=== PATIENT | male | born 1945 | race Hispanic/Latino ===

== ENCOUNTER 2020-02-13 09:05 | Emergency (ER) | payer MEDICARE, OTHER ==
[~2020-02-13] VITALS: Ht 177.8 cm; Wt 106.6 kg
[~2020-02-13 09:05] MED LIST: AMLODIPINE BESYL5 MG PO; ASPIR 8181 MG PO; BEDOYECTA PO; DICYCLOMINE HCL10 MG PO; LISINOPRIL PO; METFORMIN HCL500 MG PO; PENTOXIFYLLINE400 MG PO; ROSUVASTATIN PO; TRESIBA FL100 UNIT/1 SQ; ZINC SULFATE220 M1 PO
--- NOTE | 2020-02-13 09:31 | Emergency Department Note ---
History of Present Illnes History of Present Illness Chief Complaint: Eye, Ear, Nose, Throat, Dental History of Present Illness This is a 74 year old male . Chief Complaint Comment PATIENT IN FROM HOME WITH COMPLAINTS OF MORE PRONOUNCED HEARING LOSS X 2 DAYS; SPOUSE STATES THAT HE HAS HAD ISSUES WITH HIS HEARING FOR THE LAST COUPLE OF YEARS AND GOT A HEARING AID, BUT THEN IT WAS TAKEN BACK. PATIENT STATES HE SAW HIS PRIMARY CARE PHYSICIAN A MONTH AGO AND WAS GIVEN DROPS, BUT THEY DID NOT HELP. PATIENT DENIES PAIN, APPEARS IN NO DISTRESS, RESP EVEN AND NONLABORED, AMBULATORY WITHOUT ASSISTANCE Historian: Patient, Family Member Arrival Mode: Car Onset (how long ago): week(s) (3) Location: EARS Radiation: Denies non-radiation, Denies back, Denies neck, Denies extremity, Denies abdomen, Denies periumbilical, Denies flank, Denies proximal, Denies distal, Denies other Severity: moderate Onset quality: gradual Duration (how long): week(s) (3) Timing of current episode: constant Chronicity: new Context: Denies recent illness, Denies recent surgery, Denies recent immobilization, Denies recent travel, Denies trauma/injury, Denies new medications, Denies hx of DVT/PE, Denies non-compliance w/ medications, Denies other Relieving factors: none Exacerbating factors: none Associated symptoms: Denies denies other symptoms, Denies confusion, Denies chest pain, Denies cough, Denies diaphoresis, Denies fever/chills, Denies headaches, Denies loss of appetite, Denies malaise, Denies nausea/vomiting, Denies rash, Denies seizure, Denies shortness of breath, Denies syncope, Denies weakness, Denies other Past Medical/Family History Physician Review I have reviewed the patient's past medical and family history. Any updates have been documented here. Past Medical History Recent Fever: No Clinical Suspicion of Infectio: No New/Unexplained Change in Ment: No Past Medical History: Hypertension, Diabetes, Cancer Other Medical History: COLON CANCER HARD OF HEARING Past Surgical History: Cholecysctectomy Other Surgery: PACEMAKER, COLON CANCER 2012, HERNIED DISK, ROTOR CUFF,LEFT EYE SURGERY, Social History Smoking Cessation: Never Smoker Counseling Performed: No Alcohol Use: None Any Illegal Drug Use: No Physically hurt or threatened: No Other Last Tetanus: UNKNOWN Any Pre-Existing Lines (PICC,: No Review of Systems Review of Systems Constitutional: Reports no symptoms EENTM: Reports as per HPI Cardiovascular: Reports no symptoms Respiratory: Reports no symptoms Gastrointestinal: Reports no symptoms Genitourinary: Reports no symptoms Musculoskeletal: Reports no symptoms Integumentary: Reports no symptoms Neurological: Reports no symptoms Psychological: Reports no symptoms Endocrine: Reports no symptoms Hematological/Lymphatic: Reports no symptoms Physical Exam Related Data Allergies: Coded Allergies: No Known Allergies (Unverified , 10/16/19) Triage Vital Signs Vital Signs Date Time Temp Pulse Resp B/P (MAP) Pulse Ox O2 Delivery O2 Flow Rate FiO2 02/13/20 09:08 97.5 79 18 160/68 99 Room Air Vital signs reviewed: Yes Physical Exam CONSTITUTIONAL Constitutional: Present well-developed, Present well-nourished HENT HENT: Present normocephalic, Present atraumatic, Present oropharynx clear/moist, Present nose normal HENT L/R: Present left ext ear normal, Present right ext ear normal EYES Eyes: Reports PERRL, Reports conjunctivae normal NECK Neck: Present ROM normal PULMONARY Pulmonary: Present effort normal, Present breath sounds normal CARDIOVASCULAR Cardiovascular: Present regular rhythm, Present heart sounds normal, Present capillary refill normal, Present normal rate GASTROINTESTINAL Abdominal: Present soft, Present nontender, Present bowel sounds normal GENITOURINARY Genitourinary: Present exam deferred SKIN Skin: Present warm, Present dry MUSCULOSKELETAL Musculoskeletal: Present ROM normal NEUROLOGICAL Neurological: Present alert, Present oriented x 3, Present no gross motor or sensory deficits PSYCHOLOGICAL Psychological: Present mood/affect normal, Present judgement normal Assessment & Plan Medical Decision Making MDM CERUMEN HEARING LOSS Reassessment Reassessment SAME Assessment & Plan Final Impression: (1) Hearing loss Depart Disposition: HOME, SELF-CARE Last Vital Signs Date Time Temp Pulse Resp B/P (MAP) Pulse Ox O2 Delivery O2 Flow Rate FiO2 02/13/20 09:08 97.5 79 18 160/68 99 Room Air Home Meds Reported Medications Aspirin (ASPIR 81) 81 Mg Tablet.dr, 81 MG PO DAILY 10/18/19 Insulin Degludec (Tresiba Flextouch U-100) 100 Unit/1 Ml Insuln.pen, 17 UNITS SQ DAILY 10/16/19 Zinc Sulfate (ZINC SULFATE) 220 Mg Capsule, 50 MG PO DAILY 10/16/19 [Bedoyecta] No Conflict Check, 1 CAP PO DAILY 10/16/19 Amlodipine Besylate (AMLODIPINE BESYLATE) 5 Mg Tablet, 2.5 MG PO BID, #30 TAB 10/16/19 Metformin Hcl (METFORMIN HCL) 500 Mg Tablet, 1000 MG PO BIDWM, #60 TAB 10/16/19 [Lisinopril] No Conflict Check, 20 MG PO BID 10/16/19 [Rosuvastatin] No Conflict Check, 20 MG PO DAILY 10/16/19 Pentoxifylline (PENTOXIFYLLINE) 400 Mg Tablet.er, 400 MG PO BIDWM, #30 TAB 10/16/19 Dicyclomine Hcl (DICYCLOMINE HCL) 10 Mg Capsule, 10 MG PO QID 10/16/19 SHAHNAZ LOWE MD Feb 13, 2020 09:31
[2020-02-13] MEDS ORDERED: CORTISPORIN-TC10 M1 EACH EAR (09:36)
--- OUTSIDE RECORDS SUMMARY | 2020-02-13 09:46 | XMS REPORT | Continuity of Care Document ---
Author Author [facility] t Organization [facility] Address [address] [place] [address] Phone Unavailable Care Team Providers Care Councilman Name Role Phone MD Kailey ASHER PCP DAHU, S JIRIES Attphys Unavailable DAHU, S JIRIES Admphys Unavailable Payers Payer Name Policy Type Policy Number Effective Date Expiration Date Jana Krause Plus [id number] 2019 00:00:00 [facility] Medicare A & B [id number] 2004 00:00:00 [facility] Problems Condition Name Condition Details Condition Category Status Onset Date Resolution Date Last Treatment Date Treating Clinician Comments Source Chest pain Problem Active [facility] Allergies, Adverse Reactions, Alerts This patient has no known allergies or adverse reactions. Social History Social Habit Start Date Stop Date Quantity Comments Source Sex Ass[birth year] At 1945 00:00:00 1945 00[birth year]:00 Male [facility] Medications Ordered Medication Name Filled Medication Name Start Date Stop Da te Current Medication? Ordering Clinician Indication Dosage Frequency Signature (SIG) Comments Components Source Amlodipine Besylate Amlodipine Besylate Yes 2.5 Twice A Day [facility] Aspirin (Aspir 81) 81 Mg TABLET. Aspirin (Aspir 81) 81 Mg TABLET. Yes 81 Daily [facility] Bedoyecta Bedoyecta Yes 1 Daily [facility] Dicyclomine Hcl Dicyclomine Hcl Yes 10 Four Mao es Daily [facility] Insulin Degludec (Tresiba Flextouch U-100) 100 Unit/1 Ml INSULN.PEN Insulin Degludec (Tresiba Flextouch U-100) 100 Unit/1 Ml INSULN.PEN Yes 17 Daily [facility] Lisinopril Lisinopril Yes 20 Twice A Day [facility] Metformin Hcl Metformin Hcl Yes 1000 Twice Daily With Meals [facility] Pentoxifylline Pentoxifylline Yes 400 Twice Hitesh y With Meals [facility] Rosuvastatin Rosuvastatin Yes 20 Daily [facility] Zinc Sulfate Zinc Sulfate Yes 50 Daily [facility] Vital Signs Vital Name Observation Time Observation Value Comments Source Body Temperature 2019-10-18 15:53:00 97.7 [degF] [facility] BMI (Body Mass Index) 2019-10-16 15:10:00 46.3 kg/m2 [facility] Weight 2019-10-16 12:26:00 229 [lb_av] [facility] Procedures Procedure Date / Time Performed Performing Clinician Sour e Computed tomography of chest with contrast 2019-10-16 00:00:00 [facility] Plan of Care Planned Activity Planned Date Details Comments Source Instructions Chest Pain - Chest Wall [facility] Encounters Start Date/Time End Date/Time Encounter Type Admission Type [facility] Care Department Encounter ID Source 2019-10-16 13:55:00 2019-10-18 16:57:00 Discharged Inpatient (obs) 1 TRACY VASQUEZ [facility] [id number] I [facility] Results Test Description Test Time Test Comments Results Result Comments Source Capillary blood glucose measurement by glucometer (mas s/volume) 2019-10-18 15:25:00 Test Item Bedside Glucose (test code = 07276-8) 247 70-120 Meter ID: [id number] Hospitalerum or plasma creatine kinase measurement (enzymatic activity/volume)2019-10-17 12:46:00* Test Item Value Reference Range Interpretation Comments Creatine Kinase (test code = 2157-6) 340 30-200 [facility] plasma creatine kinase MB measurement (mass/volume)2019-10-17 12:46:00* Test Item Value Reference Range Interpretation Comments Creatine Kinase MB (test code = 63729-5) 7.90 0-5.0 [facility] measurement by highly sensitive enzyme zqtdiylzmms7788-96-10 12:46:00* Test Item Value Reference Range Interpretation Comments Troponin I (test code = 36534-7) 0.288 0-0.300 [facility] leukocytes automated count (number/volume)2019-10-17 06:15:00* Test Item Value Reference Range Interpretation Comments White Blood Count (test code = 6690-2) 4.23 4.8-10.8 [facility]Blood erythrocytes automated count (number/volume)2019-10-17 06:15:00* Test Item Value Reference Range Interpretation Comments Red Blood Count (test code = 789-8) 4.32 4.3-5.7 [facility] hemoglobin measurement (moles/volume)2019-10-17 06:15:00* Test Item Value Reference Range Interpretation Comments Hemoglobin (test code = 28922-0) 13.4 14.0-18.0 [facility] CenterAutomated blood hematocrit (volume fraction)2019-10-17 06:15:00* Test Item Value Reference Range Interpretation Comments Hematocrit (test code = 4544-3) 40.0 38.2-49.6 [facility] CenterAutomated erythrocyte mean corpuscular azatig9964-75-00 06:15:00* Test Item Value Reference Range Interpretation Comments Mean Corpuscular Volume (test code = 787-2) 92.6 81-99 [facility] CenterAutomated erythrocyte mean corpuscular hemoglobin (mass per erythrocyte)2019-10-17 06:15:00* Test Item Value Reference Range Interpretation Comments Mean Corpuscular Hemoglobin (test code = 785-6) 31.0 28-32 [facility] CenterAutomated erythrocyte mean corpuscular hemoglobin concentration measurement (mass/volume)2019-10-17 06:15:00* Test Item Value Reference Range Interpretation Comments Mean Corpuscular Hemoglobin Concent (test code = 786-4) 33.5 31-35 [facility] CenterRDW PxeAc-Vqm2142-05-08 06:15:00* Test Item Value Reference Range Interpretation Comments Red Cell Distribution Width (test code = 18853-7) 13.1 11.7 -14.4 [facility] CenterAutomated blood platelet count (count/volume)2019-10-17 06:15:00* Test Item Value Reference Range Interpretation Comments Platelet Count (test code = 777-3) 160 140-360 [facility] CenterAutomated blood segmented neutrophil count as percentage of total pmneowrump4015-25-68 06:15:00* Test Item Value Reference Range Interpretation Comments Neutrophils (%) (Auto) (test code = 02174-7) 54.6 38.7-80.0 [facility] CenterAutomated blood lymphocyte count as percentage ot total urfxbwhack3261-88-59 06:15:00* Test Item Value Reference Range Interpretation Comments Lymphocytes (%) (Auto) (test code = 736-9) 29.8 18.0-39.1 [facility] CenterAutomated blood monocyte count as percentage of total qvshdujnaa3898-97-69 06:15:00* Test Item Value Reference Range Interpretation Comments Monocytes (%) (Auto) (test code = 5905-5) 12.3 4.4-11.3 [facility] CenterAutomated blood eosinophil count as percentage of total dadvaxizij6063-04-46 06:15:00* Test Item Value Reference Range Interpretation Comments Eosinophils (%) (Auto) (test code = 713-8) 2.6 0.0-6.0 [facility] CenterAutomated blood basophil count as percentage of total xwwrkuremo4242-24-70 06:15:00* Test Item Value Reference Range Interpretation Comments Basophils (%) (Auto) (test code = 706-2) 0.7 0.0-1.0 [facility] CenterFluoroscopic procedure less than one hour poknvfgs5646-58-19 06:15:00* Test Item Value Reference Range Interpretation Comments IM GRANULOCYTES % (test code = IM GRANULOCYTES %) 0.0 0.0- 1.0 [facility] CenterAutomated blood neutrophil count 2019-10-17 06:15:00* Test Item Value Reference Range Interpretation Comments Neutrophils # (Auto) (test code = 751-8) 2.3 2.1-6.9 [facility] CenterBlood lymphocytes count (number/volume) 2019-10-17 06:15:00* Test Item Value Reference Range Interpretation Comments Lymphocytes # (Auto) (test code = 21976-2) 1.3 1.0-3.2 [facility] CenterBlood monocytes automated count (number/volume)2019-10-17 06:15:00* Test Item Value Reference Range Interpretation Comments Monocytes # (Auto) (test code = 742-7) 0.5 0.2-0.8 [facility] CenterAutomated blood eosinophil count 2019-10-17 06:15:00* Test Item Value Reference Range Interpretation Comments Eosinophils # (Auto) (test code = 711-2) 0.1 0.0-0.4 [facility] CenterAutomated blood basophil count (count/volume)2019-10-17 06:15:00* Test Item Value Reference Range Interpretation Comments Basophils # (Auto) (test code = 704-7) 0.0 0.0-0.1 [facility] CenterFluoroscopic procedure less than one hour tjrnwvzv4838-61-50 06:15:00* Test Item Value Reference Range Interpretation Comments Absolute Immature Granulocyte (auto (young t code = Absolute Immature Granulocyte (auto) 0 0-0.1 [facility]er[facility] or plasma sodium measurement (moles/volume)2019-10-17 04:45:00* Test Item Value Reference Range Interpretation Comments Sodium Level (test code = 2951-2) 143 136-145 [facility] Hospitaler[facility] or plasma potassium measurement (moles/volume)2019-10-17 04:45:00* Test Item Value Reference Range Interpretation Comments Potassium Level (test code = 2823-3) 3.8 3.5-5.1 [facility] Hospitaler[facility] or plasma chloride measurement (moles/volume)2019-10-17 04:45:00* Test Item Value Reference Range Interpretation Comments Chloride Level (test code = 2075-0) 109 98-107 [facility]er[facility] or plasma carbon dioxide, total measurement (moles/volume)2019-10-17 04:45:00* Test Item Value Reference Range Interpretation Comments Carbon Dioxide Level (test code = 2028-9) 25 22-29 [facility]er[facility] or plasma anion apz0250-25-29 04:45:00* Test Item Value Reference Range Interpretation Comments Anion Gap (test code = 79472-7) 12.8 8-16 [facility] or plasma urea nitrogen measurement (mass/volume)2019-10-17 04:45:00* Test Item Value Reference Range Interpretation Comments Blood Urea Nitrogen (test code = 3094-0) 11 7-26 [facility]er[facility] or plasma creatinine measurement (mass/volume)2019-10-17 04:45:00* Test Item Value Reference Range Interpretation Comments Creatinine (test code = 2160-0) 0.81 0.72-1.25 [facility] Hospitalerum or plasma urea nitrogen/creatinine mass mzxct0442-42-90 04:45:00* Test Item Value Reference Range Interpretation Comments BUN/Creatinine Ratio (test code = 3097-3) 14 6-25 [facility] CenterEstimated glomerular filtration rate (GFR) pcpuipbftjmip0656-98-02 04:45:00* Test Item Value Reference Range Interpretation Comments Estimat Glomerular Filtration Rate (test code = 249744254) > 60 >60 Ranges were taken from the National Kidney Disease Education Program and the [facility] literature.Reference ranges:60 or greater: Ecejyh14-27 ( for 3 consecutive months): Chronic kidney disease 15 or less: Kidney failureDell Children's Medical CenterGlucose udphewghkpg4844-96-54 04:45:00* Test Item Value Reference Range Interpretation Comments Glucose Level (test code = ABZ7436) 103 74-118 [facility] Hospitalerum or plasma calcium measurement (mass/volume)2019-10-17 04:45:00* Test Item Value Reference Range Interpretation Comments Calcium Level (test code = 40489-5) 8.7 8.4-10.2 [facility] CenterFluoroscopic procedure less than one hour msllhkqz6036-12-87 04:45:00* Test Item Value Reference Range Interpretation Comments Hemoglobin A1c Percent (test code = Hemoglobin A1c Percent) 7.7 4.0-7.0 [facility] Hospitalerum or plasma total bilirubin measurement (mass/volume)2019-10-17 04:45:00* Test Item Value Reference Range Interpretation Comments Total Bilirubin (test code = 1975-2) 0.5 0.2-1.2 [facility] CenterFluoroscopic procedure less than one hour cyrpgpoy8322-86-21 04:45:00* Test Item Value Reference Range Interpretation Comments Aspartate Amino Transf (AST/SGOT) (test code = Aspartate Amino Transf (AST/SGOT)) 25 5-34 [facility] Hospitalerum or plasma alanine aminotransferase measurement (enzymatic activity/volume)2019-10-17 04:45:00* Test Item Value Reference Range Interpretation Comments Alanine Aminotransferase (ALT/SGPT) (test code = 1742-6) 21 0-55 [facility] Hospitalerum or plasma protein measurement (mass/volume)2019-10-17 04:45:00* Test Item Value Reference Range Interpretation Comments Total Protein (test code = 2885-2) 6.4 6.5-8.1 [facility] Hospitalerum or plasma albumin measurement (mass/volume)2019-10-17 04:45:00* Test Item Value Reference Range Interpretation Comments Albumin (test code = 1751-7) 3.3 3.5-5.0 [facility] CenterPlasma globulin measurement (mass/volume) 2019-10-17 04:45:00* Test Item Value Reference Range Interpretation Comments Globulin (test code = 27503-5) 3.1 2.3-3.5 [facility] Hospitalerum or plasma albumin/globulin mass welbf2912-32-59 04:45:00* Test Item Value Reference Range Interpretation Comments Albumin/Globulin Ratio (test code = 1759-0) 1.1 0.8-2.0 [facility] Hospitalerum or plasma alkaline phosphatase measurement (enzymatic activity/volume)2019-10-17 04:45:00* Test Item Value Reference Range Interpretation Comments Alkaline Phosphatase (test code = 6768-6) 52 40-150 [facility] Hospitalerum or plasma triglyceride measurement (mass/volume)2019-10-17 04:45:00* Test Item Value Reference Range Interpretation Comments Triglycerides Level (test code = 2571-8) 118 0-149 [facility]erum or plasma cholesterol measurement (mass/volume)2019-10-17 04:45:00* Test Item Value Reference Range Interpretation Comments Cholesterol Level (test code = 2093-3) 130 0-199 Less than 200 mg/dL Low Qxks082 - 239 mg/dL Borderline Ozzu492 m g/dl and greater High Risk [facility] Hospitalerum or plasma cholesterol in LDL measurement (mass/volume) 2019-10-17 04:45:00* Test Item Value Reference Range Interpretation Comments LDL Cholesterol (test code = 2089-1) 54 60-130 [facility]er[facility] or plasma cholesterol in HDL measurement (mass/volume)2019-10-17 04:45:00* Test Item Value Reference Range Interpretation Comments HDL Cholesterol (test code = 2085-9) 52 40-60 [facility] Hospitalerum or plasma total cholesterol/cholesterol in HDL mass tplia2273-61-70 04:45:00* Test Item Value Reference Range Interpretation Comments Cholesterol/HDL Ratio (test code = 9830-1) 2.5 3.9-4.7 [facility] Hospitalerum or plasma thyrotropin measurement by detection limit <= 0.005 miu/l (units/volume)2019-10-17 04:45:00* Test Item Value Reference Range Interpretation Comments Thyroid Stimulating Hormone (TSH) (test code = 77530-6) 0.634 0.350-4.940 [facility] CenterCT CHEST K4317-19-04 21:04:00 [facility] [address] [place] [address] Patient Name: KENNETH DUARTE MR #: [id number] : 1945 Age/Sex: 74[id number] Req #: [id number] Adm Physician: TRACY VASQUEZ MD Ordered by: TRACY VASQUEZ MD Report #: [id number] Location: MED/SURG Room/Bed: 1 10-09 Procedure: CT/CT CHEST W Exam Date: 10/16/19 Exam Time: 2034 REPORT STATUS: Signed CT chest pulmonary embolism pro tocol CPT code: 84298 INDICATION: SOB, R/O PE [id number] TECHNIQUE: Thin collimation axial images obtained through the level of th e pulmonary arteries with additional imaging through the chest following the uneventful administration of 100 cc of low osmolar, nonionic intravenous cont rast. Images reconstructed into coronal and sagittal MIPs for complete evalua tion of the tortuous and overlapping pulmonary vascular structures and to redu ce patient radiation dose. RADIATION DOSE: Total DLP: 562.51 mGy*cm Estimated effective dose: (DLP x 0.015 x size factor) mSv CTDIvol has been reviewed. It is below the limits set by the Radiation Protocol Commi ttee ([facility]). Dose reduction techniques used: Automated exposure control, adj ustment of the mAs and/or kVp according to patient size, standardized low-dose protocol, and/or iterative reconstruction technique. COMPARISON: Chest x -ray 1219 hours. FINDINGS: Pulmonary artery: No filling defects are appre ciated within the main, left, right, lobar or visualized segmental pulmonary a rteries to suggest embolism. The main pulmonary artery measures 3.0 cm. A brigette: Timing of the contrast bolus is for the pulmonary artery. The aorta is normal in diameter with scattered calcifications throughout. Lymph nodes: N o enlarged axillary, supraclavicular, mediastinal, or hilar lymph nodes. Thyroid: Visualized portions are normal. Mediastinum: There is a small amou nt of air in the left axillary vein, likely from injection. The heart is mildl y enlarged. Pacemaker wires terminate in the right atrium and right ventricle. There are calcifications of the aortic valve and coronary arteries. Small per icardial effusion. The esophagus is normal. Lungs: Right Lung: Mild h yperinflation. Dependent atelectasis. No infiltrates. Small focus of honeycomb ing adjacent hemidiaphragm in the inferior and lateral middle lobe. No soft ti ssue nodules. Left Lung: Mild hyperinflation. Dependent atelectasis. Small foci of atelectasis in the inferior lingula. No soft tissue nodules. Ple ura: No pleural effusion or pleural-based mass. Abdomen: The gallbladder is absent. No mass or lymphadenopathy in the visualized portions of the upper ab domen. Bones: Mild degenerative changes of the midthoracic spine. No focal osseous lesions. IMPRESSION: 1. No evidence of pulmonary embolus. T op normal-size of the main pulmonary artery. 2. Pulmonary hyperinflation carrera ggestive of small airways disease. 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 3. Cardiomegaly. Small pericardial effusion. Atherosclerosis. 4. Small amount of air in the left axillary vein is likely secondary to injection. Signed by: Dr. Yenny Rincon MD on 10/16/2019 9:18 PM Dictated By: YENNY RINCON MD 17 Transcribed By: JOCELYN on 10/16/192117 COPY TO: TRACY VASQUEZ MD CHEST SINGLE (PORTABLE)2019-10-16 13:34:00 [place] [address] Patient Name: KENNETH DUARTE MR #: [id number] : 1945 Age/Sex: 74/M Req #: [id number] Adm Physician: Ordered by: AZUL RICO MD Report # : [id number] Location: ER Room/Bed: Procedure: [id number] DX/CHEST SINGLE (PO RTABLE) Exam Date: 10/16/19 Exam Time: 1319 REPORT STATUS: Signed EXAMINATION: CHES T SINGLE (PORTABLE) INDICATION: CP COMPARISON: None FIN DINGS: TUBES and LINES: Left-sided pacemaker with leads overlying the right a trium and right ventricle. LUNGS: Low lung volumes with vascular crowdin g. There is no evidence of pneumonia or pulmonary edema. PLEURA: No pleu ral effusion or pneumothorax. HEART AND MEDIASTINUM: The cardiomediastina l silhouette is unremarkable. There are atherosclerotic calcifications within the aorta. BONES AND SOFT TISSUES: No acute osseous lesion. Soft tissues are unremarkable. UPPER ABDOMEN: No free air under the diaphragm. IMPRESSION: No acute radiographic abnormality. No evidence of pulmonary joaquin ma. Signed by: Dr. Fiona Schultz MD on 10/16/2019 1:36 PM Dictated By: Jana SCHULTZ MD 1336 Transcri bed By: JOCELYN on 10/16/19 1336 COPY TO: AZUL RICO MD Fluoroscopic procedure less than one hour gecphzyf5552-61-33 13:03:00* Test Item Value Reference Range Interpretation Comments Coronavirus (PCR) (test code = Coronavirus (PCR)) NOT DETECTED NOTD ETECTED SARS-COV-2 (COVID19), HIGHRISK, RT-PCRNegative results do not preclude SARS-CoV- 2 infection and should not be used as the sole basis for patient management deci sions. Negative results must be combined with clinical observations, patient his tory, and epidemiological information. Optimum specimen types and timing for pea k viral levels during infections caused by SARS-CoV-2 have not been determined. Collection of multiple specimens ot types of specimens may be necessary to detec t virus. Improper specimen collection and handling, sequence variability under p rimers/probes, or organism present below the limit of detection may lead to fals e negative results. Positive and negative predictive values of testing are highl y dependent on prevalance. False negative test results are more likely when prev alence is high.The expected result is negative (not detected).The SARS-CoV-2 young t is intended for the qualitative detection of nucleic acid from SARS-CoV-2 in n asopharyngeal and oropharyngeal swab samples from patients who meet COVID-19 cli nical and or epidemiological criteria. For lower respiratory tract specimens, th e assay is submitted for authoriztion by FDA under an Emergency Use Authorizatio n (EUA). Testing methodology is real time RT-PCR. If received as separate collec tion devices, nasopharygeal and oropharyngeal specimens are combined for analysi s. Additional specimens may be split to a separate accession for analysi and rep orting as this test includes a single unit of service.Test results must be corre lated with clinical presentation and evaluated in the context of other laborator y and epidemiologic data. Test performance can be affected because the epidemiol ogy and clinical spectrum of infection caused by SARS-CoV-2 is not fully known. For example, the optimum types of specimens to collect and when during the cours e of infection these specimens are most likely to contain detectable viral RNA m ay not be known.This test has not been Food and Drug Administration (FDA) cleare d or approved and has been authorized by FDA under an Emergency Use Authorizatio n (EUA). The test is only authorized for the duration of the declaration that ci rcumstances exist justifying the authorization of emergency use of in vitro diag nostic tests for detection and/or diagnosis of SARS-CoV-2 under section 564(b) o f the Act, 21 U.S.C. section 360bbb-3(b)(1), unless the authorization is termina kwaku or revoked sooner. [facility] are certified under the C linical Laboratory Improvement Amendments of 1988 (CLIA), 42 U.S.C. section 263a , to perform high complexity tests.Testing performed by [facility] [address] [place], [place] [phone] Director: Clark Cortez M.D.CLIA # [id number] [facility] Prothrombin time (PT) in platelet poor plasma by coagulation mrpkn1674-37-51 12:45:00* Test Item Value Reference Range Interpretation Comments Prothrombin Time (test code = 5902-2) 11.9 11.9-14.5 [facility] CenterIN[facility] in Platelet poor plasma by Coagulation pmxwk8851-73-34 12:45:00* Test Item Value Reference Range Interpretation Comments Prothromb Time International Ratio (test code = 6301-6) 0.83 Oral Anticoagulant Therapy INR Values:1. Low Intensity Therapy 1.5 - 2.02 . Moderate Intensity Therapy 2.0 - 3.03. High Intensity Therapy(1) 2.5 - 3. 54. High Intensity Therapy(2) 3.0 - 4.05. Panic Value INR > 5.0 [facility] CenterActivated partial thromboplastin time (aPTT) in platelet poor plasma by coagulation rpikv8392-50-95 12:45:00* Test Item Value Reference Range Interpretation Comments Activated Partial Thromboplast Time (test code = 64315-4) 26.4 23.8-35.5 [facility] magnesium measurement (mass/volume)2019-10-16 12:45:00* Test Item Value Reference Range Interpretation Comments Magnesium Level (test code = 32507-4) 1.4 1.3-2.1 [facility] A[facility]-dJuo3281-09-07 12:45:00* Test Item Value Reference Range Interpretation Comments B-Type Natriuretic Peptide (test code = 94308-6) 92.3 0-100 [facility]
== END 2020-02-13 09:55 | disposition home or self-care (01) ==
LOC: ER 09:44
DX: H91.93 Unspecified hearing loss, bilateral (principal); I10 Essential (primary) hypertension; E11.9 Type 2 diabetes mellitus without complications; Z85.038 Personal history of other malignant neoplasm of large intestine
CPT/HCPCS: 99283

== ENCOUNTER 2020-02-25 13:00 | Emergency (ER) | payer MEDICARE, OTHER ==
[~2020-02-25] VITALS: Ht 177.8 cm; Wt 106.6 kg
[~2020-02-25 13:00] MED LIST changes: +CORTISPORIN-TC10 M1 EACH EAR
[2020-02-25 13:30] LABS: BASOPHILS % 0.5 % (0.0-1.0); EOSINOPHILS # (AUTO) 0.1 (0.0-0.4); EOSINOPHILS % 1.8 % (0.0-6.0); HEMATOCRIT 41.3 % (38.2-49.6); HEMOGLOBIN 14.3 g/dL (14.0-18.0); LYMPHOCYTES # (AUTO) 1.3 (1.0-3.2); LYMPHOCYTES % 24.4 % (18.0-39.1); MEAN CORPUSCULAR HGB CONC 34.6 g/dL (31-35); MEAN CORPUSCULAR VOLUME 92.4 fL (81-99); MONOCYTES # (AUTO) 0.5 (0.2-0.8); MONOCYTES % 8.2 % (4.4-11.3); NEUTROPHILS # (AUTO) 3.6 (2.1-6.9); NEUTROPHILS % 64.6 % (38.7-80.0); PLATELET COUNT 170 x10e3/uL (140-360); RED BLOOD COUNT 4.47 x10e6/uL (4.3-5.7)
--- OUTSIDE RECORDS SUMMARY | 2020-02-25 13:43 | XMS REPORT | Continuity of Care Document ---
Author Author [facility] t Organization [facility] Address [address] [place] [address] Phone Unavailable Care Team Providers Care Chaperone Name Role Phone MD Kailey ASHER PCP DAHU, Jana JIRIES Attphys Unavailable DAHU, S JIMACY Admphys Unavailable Payers Payer Name Policy Type Policy Number Effective Date Expiration Date Jana Krause Plus [id number] 2019 00:00:00 [facility] Medicare A & B [id number] 2004 00:00:00 [facility] Cdc Review Covid19 [id number] [facility] Problems Condition Name Condition Details Condition Category Status Onset Date Resolution Date Last Treatment Date Treating Clinician Comments Source Chest pain Problem Active [facility] Hearing loss Problem Active [facility] Allergies, Adverse Reactions, Alerts This patient has no known allergies or adverse reactions. Social History Social Habit Start Date Stop Date Quantity Comments Source Sex Assigned At 1945 00:00:00 1945 00:[birth year]:00 Male [facility] Medications Ordered Medication Name Filled Medication Name Start Date Stop Da te Current Medication? Ordering Clinician Indication Dosage Frequency Signature (SIG) Comments Components Source Neomyc/Colist/Hydrocort/Thonzn (Cortisporin-Tc Ear Yoselin pension) 10 Ml DROPS.SUSP Neomyc/Colist/Hydrocort/Thonzn (Cortisporin-Tc Ear Suspension) 10 Ml DROPS.SUSP 2020-02-13 09:36:00 Yes 3 Twice A Day [facility] Amlodipine Besylate Amlodipine Besylate Yes 2.5 Twice A Day [facility] Aspirin (Aspir 81) 81 Mg TABLET. Aspirin (Aspir 81) 81 Mg TABLET. Yes 81 Daily [facility] Bedoyecta Bedoyecta Yes 1 Daily [facility] Dicyclomine Hcl Dicyclomine Hcl Yes 10 Four Mao es Daily [facility] Insulin Degludec (Tresiba Flextouch U-100) 100 Unit/1 Ml INSULN.PEN Insulin Degludec (Tresiba Flextouch U-100) 100 Unit/1 Ml INSULN.PEN Yes 17 Daily [facility] Lisinopril Lisinopril Yes 20 Twice A Day [facility] Metformin Hcl Metformin Hcl Yes 1000 Twice Daily With Meals [facility] Pentoxifylline Pentoxifylline Yes 400 Twice Hitesh y With Meals [facility] Rosuvastatin Rosuvastatin Yes 20 Daily [facility] Zinc Sulfate Zinc Sulfate Yes 50 Daily [facility] Vital Signs Vital Name Observation Time Observation Value Comments Source Weight 2020-02-13 09:08:00 235 [lb_av] [facility] BMI (Body Mass Index) 2020-02-13 09:08:00 33.7 kg/m2 [facility] Body Temperature 2019-10-18 15:53:00 97.7 [degF] [facility] BMI (Body Mass Index) 2019-10-16 15:10:00 46.3 kg/m2 [facility] Weight 2019-10-16 12:26:00 229 [lb_av] [facility] Procedures Procedure Date / Time Performed Performing Clinician [facility] f[facility]ix Computed tomography of chest with contrast 2019-10-16 00:00:00 [facility] Plan of Care Planned Activity Planned Date Details Comments Source Instructions Instilling Ear Drops [facility] Instructions Ear Pain - Adult [facility] Encounters Start Date/Time End Date/Time Encounter Type Admission Type Attendi [facility] Care Department Encounter ID Source 2020-02-13 09:44:00 2020-02-13 09:55:00 Departed Emergency Room [facility] [id number] [facility] 2019-10-16 13:55:00 2019-10-18 16:57:00 Discharged Inpatient (obs) 1 TRACY VASQUEZ [facility] [id number] [facility] Results Test Description Test Time Test Comments Results Result Comments Source Capillary blood glucose measurement by glucometer (mas s/volume) 2019-10-18 15:25:00 Test Item Bedside Glucose (test code = 59011-2) 247 70-120 Meter ID: [id number] [facility] by glucometer (mass/volume)2019-10-18 15:25:00* Test Item Value Reference Range Interpretation Comments Bedside Glucose (test code = 21135-5) 247 70-120 Meter ID: [id number]erum or plasma creatine kinase measurement (enzymatic activity/volume)2019-10-17 12:46:00* Test Item Value Reference Range Interpretation Comments Creatine Kinase (test code = 2157-6) 340 30-200 [facility]uda[facility] or plasma creatine kinase MB measurement (mass/volume)2019-10-17 12:46:00* Test Item Value Reference Range Interpretation Comments Creatine Kinase MB (test code = 25003-9) 7.90 0-5.0 [facility] I measurement by highly sensitive enzyme dmknlsfgnro2823-31-90 12:46:00* Test Item Value Reference Range Interpretation Comments Troponin I (test code = 53405-3) 0.288 0-0.300 [facility]uda[facility] or plasma creatine kinase measurement (enzymatic activity/volume)2019-10-17 12:46:00* Test Item Value Reference Range Interpretation Comments Creatine Kinase (test code = 2157-6) 340 30-200 [facility]uda[facility]um or plasma creatine kinase MB measurement (mass/volume)2019-10-17 12:46:00* Test Item Value Reference Range Interpretation Comments Creatine Kinase MB (test code = 51112-8) 7.90 0-5.0 [facility] WorthTroponin I measurement by highly sensitive enzyme qhvyukytlph3955-00-21 12:46:00* Test Item Value Reference Range Interpretation Comments Troponin I (test code = 81050-9) 0.288 0-0.300 [facility] leukocytes automated count (number/volume)2019-10-17 06:15:00* Test Item Value Reference Range Interpretation Comments White Blood Count (test code = 6690-2) 4.23 4.8-10.8 [facility] erythrocytes automated count (number/volume)2019-10-17 06:15:00* Test Item Value Reference Range Interpretation Comments Red Blood Count (test code = 789-8) 4.32 4.3-5.7 [facility] hemoglobin measurement (moles/volume)2019-10-17 06:15:00* Test Item Value Reference Range Interpretation Comments Hemoglobin (test code = 76150-6) 13.4 14.0-18.0 [facility] WorthAutomated blood hematocrit (volume fraction)2019-10-17 06:15:00* Test Item Value Reference Range Interpretation Comments Hematocrit (test code = 4544-3) 40.0 38.2-49.6 [facility] WorthAutomated erythrocyte mean corpuscular fkcuyt0327-75-70 06:15:00* Test Item Value Reference Range Interpretation Comments Mean Corpuscular Volume (test code = 787-2) 92.6 81-99 [facility] WorthAutomated erythrocyte mean corpuscular hemoglobin (mass per erythrocyte)2019-10-17 06:15:00* Test Item Value Reference Range Interpretation Comments Mean Corpuscular Hemoglobin (test code = 785-6) 31.0 28-32 [facility] WorthAutomated erythrocyte mean corpuscular hemoglobin concentration measurement (mass/volume)2019-10-17 06:15:00* Test Item Value Reference Range Interpretation Comments Mean Corpuscular Hemoglobin Concent (test code = 786-4) 33.5 31-35 [facility] WorthRDW UzxGa-Iys6810-44-08 06:15:00* Test Item Value Reference Range Interpretation Comments Red Cell Distribution Width (test code = 72077-7) 13.1 11.7 -14.4 [facility] WorthAutomated blood platelet count (count/volume)2019-10-17 06:15:00* Test Item Value Reference Range Interpretation Comments Platelet Count (test code = 777-3) 160 140-360 [facility] WorthAutomated blood segmented neutrophil count as percentage of total divvxoitga8821-12-63 06:15:00* Test Item Value Reference Range Interpretation Comments Neutrophils (%) (Auto) (test code = 60784-9) 54.6 38.7-80.0 [facility] WorthAutomated blood lymphocyte count as percentage ot total enjqfralin4692-13-58 06:15:00* Test Item Value Reference Range Interpretation Comments Lymphocytes (%) (Auto) (test code = 736-9) 29.8 18.0-39.1 [facility] WorthAutomated blood monocyte count as percentage of total lashsblyzy8408-94-51 06:15:00* Test Item Value Reference Range Interpretation Comments Monocytes (%) (Auto) (test code = 5905-5) 12.3 4.4-11.3 [facility] WorthAutomated blood eosinophil count as percentage of total aesclioeyd6772-35-03 06:15:00* Test Item Value Reference Range Interpretation Comments Eosinophils (%) (Auto) (test code = 713-8) 2.6 0.0-6.0 [facility] WorthAutomated blood basophil count as percentage of total lnjgnalpej5496-20-07 06:15:00* Test Item Value Reference Range Interpretation Comments Basophils (%) (Auto) (test code = 706-2) 0.7 0.0-1.0 [facility] WorthFluoroscopic procedure less than one hour ylchezjy7446-74-77 06:15:00* Test Item Value Reference Range Interpretation Comments IM GRANULOCYTES % (test code = IM GRANULOCYTES %) 0.0 0.0- 1.0 [facility] WorthAutomated blood neutrophil count 2019-10-17 06:15:00* Test Item Value Reference Range Interpretation Comments Neutrophils # (Auto) (test code = 751-8) 2.3 2.1-6.9 [facility] lymphocytes count (number/volume) 2019-10-17 06:15:00* Test Item Value Reference Range Interpretation Comments Lymphocytes # (Auto) (test code = 68608-9) 1.3 1.0-3.2 [facility] monocytes automated count (number/volume)2019-10-17 06:15:00* Test Item Value Reference Range Interpretation Comments Monocytes # (Auto) (test code = 742-7) 0.5 0.2-0.8 [facility]Aut[facility] blood eosinophil count 2019-10-17 06:15:00* Test Item Value Reference Range Interpretation Comments Eosinophils # (Auto) (test code = 711-2) 0.1 0.0-0.4 [facility] WorthAutomated blood basophil count (count/volume)2019-10-17 06:15:00* Test Item Value Reference Range Interpretation Comments Basophils # (Auto) (test code = 704-7) 0.0 0.0-0.1 [facility] WorthFluoroscopic procedure less than one hour lnppyocq2960-14-80 06:15:00* Test Item Value Reference Range Interpretation Comments Absolute Immature Granulocyte (auto (young t code = Absolute Immature Granulocyte (auto) 0 0-0.1 [facility] leukocytes automated count (number/volume)2019-10-17 06:15:00* Test Item Value Reference Range Interpretation Comments White Blood Count (test code = 6690-2) 4.23 4.8-10.8 [facility] erythrocytes automated count (number/volume)2019-10-17 06:15:00* Test Item Value Reference Range Interpretation Comments Red Blood Count (test code = 789-8) 4.32 4.3-5.7 [facility] hemoglobin measurement (moles/volume)2019-10-17 06:15:00* Test Item Value Reference Range Interpretation Comments Hemoglobin (test code = 07095-5) 13.4 14.0-18.0 [facility] WorthAutomated blood hematocrit (volume fraction)2019-10-17 06:15:00* Test Item Value Reference Range Interpretation Comments Hematocrit (test code = 4544-3) 40.0 38.2-49.6 [facility] WorthAutomated erythrocyte mean corpuscular ijyvvg7183-95-12 06:15:00* Test Item Value Reference Range Interpretation Comments Mean Corpuscular Volume (test code = 787-2) 92.6 81-99 [facility] WorthAutomated erythrocyte mean corpuscular hemoglobin (mass per erythrocyte)2019-10-17 06:15:00* Test Item Value Reference Range Interpretation Comments Mean Corpuscular Hemoglobin (test code = 785-6) 31.0 28-32 [facility] WorthAutat[facility]ned erythrocyte mean corpuscular hemoglobin concentration measurement (mass/volume)2019-10-17 06:15:00* Test Item Value Reference Range Interpretation Comments Mean Corpuscular Hemoglobin Concent (test code = 786-4) 33.5 31-35 [facility] WorthRDW EmyGg-Sxw9815-25-08 06:15:00* Test Item Value Reference Range Interpretation Comments Red Cell Distribution Width (test code = 50286-9) 13.1 11.7 -14.4 [facility] WorthAut[facility] blood platelet count (count/volume)2019-10-17 06:15:00* Test Item Value Reference Range Interpretation Comments Platelet Count (test code = 777-3) 160 140-360 [facility] WorthAutomated blood segmented neutrophil count as percentage of total pjmjaqenax1909-38-54 06:15:00* Test Item Value Reference Range Interpretation Comments Neutrophils (%) (Auto) (test code = 42480-4) 54.6 38.7-80.0 [facility] WorthAutomated blood lymphocyte count as percentage ot total agncjmtntp3206-67-56 06:15:00* Test Item Value Reference Range Interpretation Comments Lymphocytes (%) (Auto) (test code = 736-9) 29.8 18.0-39.1 [facility] WorthAutomated blood monocyte count as percentage of total belmgoskrl4667-57-49 06:15:00* Test Item Value Reference Range Interpretation Comments Monocytes (%) (Auto) (test code = 5905-5) 12.3 4.4-11.3 [facility] WorthAutomated blood eosinophil count as percentage of total jxauoertlg5157-48-34 06:15:00* Test Item Value Reference Range Interpretation Comments Eosinophils (%) (Auto) (test code = 713-8) 2.6 0.0-6.0 [facility] WorthAutomated blood basophil count as percentage of total ghwfdojcry1400-78-92 06:15:00* Test Item Value Reference Range Interpretation Comments Basophils (%) (Auto) (test code = 706-2) 0.7 0.0-1.0 [facility] WorthFluoroscopic procedure less than one hour aowenwcp7366-95-56 06:15:00* Test Item Value Reference Range Interpretation Comments IM GRANULOCYTES % (test code = IM GRANULOCYTES %) 0.0 0.0- 1.0 [facility] WorthAutomated blood neutrophil count 2019-10-17 06:15:00* Test Item Value Reference Range Interpretation Comments Neutrophils # (Auto) (test code = 751-8) 2.3 2.1-6.9 [facility] WorthBlood lymphocytes count (number/volume) 2019-10-17 06:15:00* Test Item Value Reference Range Interpretation Comments Lymphocytes # (Auto) (test code = 64667-6) 1.3 1.0-3.2 [facility] WorthBlood monocytes automated count (number/volume)2019-10-17 06:15:00* Test Item Value Reference Range Interpretation Comments Monocytes # (Auto) (test code = 742-7) 0.5 0.2-0.8 [facility] WorthAutomated blood eosinophil count 2019-10-17 06:15:00* Test Item Value Reference Range Interpretation Comments Eosinophils # (Auto) (test code = 711-2) 0.1 0.0-0.4 [facility] WorthAutomated blood basophil count (count/volume)2019-10-17 06:15:00* Test Item Value Reference Range Interpretation Comments Basophils # (Auto) (test code = 704-7) 0.0 0.0-0.1 [facility] WorthFluoroscopic procedure less than one hour dozwcqrm7037-52-06 06:15:00* Test Item Value Reference Range Interpretation Comments Absolute Immature Granulocyte (auto (young t code = Absolute Immature Granulocyte (auto) 0 0-0.1 [facility]uda[facility]um or plasma sodium measurement (moles/volume)2019-10-17 04:45:00* Test Item Value Reference Range Interpretation Comments Sodium Level (test code = 2951-2) 143 136-145 [facility]udaerum or plasma potassium measurement (moles/volume)2019-10-17 04:45:00* Test Item Value Reference Range Interpretation Comments Potassium Level (test code = 2823-3) 3.8 3.5-5.1 [facility]uda[facility]um or plasma chloride measurement (moles/volume)2019-10-17 04:45:00* Test Item Value Reference Range Interpretation Comments Chloride Level (test code = 2075-0) 109 98-107 [facility]udaerum or plasma carbon dioxide, total measurement (moles/volume)2019-10-17 04:45:00* Test Item Value Reference Range Interpretation Comments Carbon Dioxide Level (test code = 2028-9) 25 22-29 [facility]udaerum or plasma anion ltr7744-85-41 04:45:00* Test Item Value Reference Range Interpretation Comments Anion Gap (test code = 13248-6) 12.8 8-16 [facility]uda[facility] or plasma urea nitrogen measurement (mass/volume)2019-10-17 04:45:00* Test Item Value Reference Range Interpretation Comments Blood Urea Nitrogen (test code = 3094-0) 11 7-26 [facility]uda[facility]um or plasma creatinine measurement (mass/volume)2019-10-17 04:45:00* Test Item Value Reference Range Interpretation Comments Creatinine (test code = 2160-0) 0.81 0.72-1.25 [facility]udaerum or plasma urea nitrogen/creatinine mass bkuuu1865-70-45 04:45:00* Test Item Value Reference Range Interpretation Comments BUN/Creatinine Ratio (test code = 3097-3) 14 6-25 [facility] WorthEstimated glomerular filtration rate (GFR) aydwwzqppbuiy0502-42-28 04:45:00* Test Item Value Reference Range Interpretation Comments Estimat Glomerular Filtration Rate (test code = 375107409) > 60 >60 Ranges were taken from the National Kidney Disease Education Program and the [facility] Kidney Foundation literature.Reference ranges:60 or greater: Qdkwpo41-49 ( for 3 consecutive months): Chronic kidney disease 15 or less: Kidney failureTexas Health Southwest Fort WorthGlucose cngreuzutax2453-34-66 04:45:00* Test Item Value Reference Range Interpretation Comments Glucose Level (test code = ALF4114) 103 74-118 [facility]udaerum or plasma calcium measurement (mass/volume)2019-10-17 04:45:00* Test Item Value Reference Range Interpretation Comments Calcium Level (test code = 21434-5) 8.7 8.4-10.2 [facility] WorthFluoroscopic procedure less than one hour goeolabs6130-63-53 04:45:00* Test Item Value Reference Range Interpretation Comments Hemoglobin A1c Percent (test code = Hemoglobin A1c Percent) 7.7 4.0-7.0 [facility]udaerum or plasma total bilirubin measurement (mass/volume)2019-10-17 04:45:00* Test Item Value Reference Range Interpretation Comments Total Bilirubin (test code = 1975-2) 0.5 0.2-1.2 [facility] WorthFluoroscopic procedure less than one hour jdazuwxt2687-63-26 04:45:00* Test Item Value Reference Range Interpretation Comments Aspartate Amino Transf (AST/SGOT) (test code = Aspartate Amino Transf (AST/SGOT)) 25 5-34 [facility]udaerum or plasma alanine aminotransferase measurement (enzymatic activity/volume)2019-10-17 04:45:00* Test Item Value Reference Range Interpretation Comments Alanine Aminotransferase (ALT/SGPT) (test code = 1742-6) 21 0-55 [facility]udaerum or plasma protein measurement (mass/volume)2019-10-17 04:45:00* Test Item Value Reference Range Interpretation Comments Total Protein (test code = 2885-2) 6.4 6.5-8.1 [facility]udaerum or plasma albumin measurement (mass/volume)2019-10-17 04:45:00* Test Item Value Reference Range Interpretation Comments Albumin (test code = 1751-7) 3.3 3.5-5.0 [facility] WorthPlasma globulin measurement (mass/volume) 2019-10-17 04:45:00* Test Item Value Reference Range Interpretation Comments Globulin (test code = 73224-8) 3.1 2.3-3.5 [facility]udaerum or plasma albumin/globulin mass ughic8822-44-27 04:45:00* Test Item Value Reference Range Interpretation Comments Albumin/Globulin Ratio (test code = 1759-0) 1.1 0.8-2.0 [facility]udaerum or plasma alkaline phosphatase measurement (enzymatic activity/volume)2019-10-17 04:45:00* Test Item Value Reference Range Interpretation Comments Alkaline Phosphatase (test code = 6768-6) 52 40-150 [facility]udaerum or plasma triglyceride measurement (mass/volume)2019-10-17 04:45:00* Test Item Value Reference Range Interpretation Comments Triglycerides Level (test code = 2571-8) 118 0-149 [facility]udaerum or plasma cholesterol measurement (mass/volume)2019-10-17 04:45:00* Test Item Value Reference Range Interpretation Comments Cholesterol Level (test code = 2093-3) 130 0-199 Less than 200 mg/dL Low Xlfa676 - 239 mg/dL Borderline Ufmx242 m g/dl and greater High Risk [facility]udaerum or plasma cholesterol in LDL measurement (mass/volume) 2019-10-17 04:45:00* Test Item Value Reference Range Interpretation Comments LDL Cholesterol (test code = 2089-1) 54 60-130 [facility]udaerum or plasma cholesterol in HDL measurement (mass/volume)2019-10-17 04:45:00* Test Item Value Reference Range Interpretation Comments HDL Cholesterol (test code = 2085-9) 52 40-60 [facility]udaerum or plasma total cholesterol/cholesterol in HDL mass lbcmv2538-16-44 04:45:00* Test Item Value Reference Range Interpretation Comments Cholesterol/HDL Ratio (test code = 9830-1) 2.5 3.9-4.7 [facility]udaerum or plasma thyrotropin measurement by detection limit <= 0.005 miu/l (units/volume)2019-10-17 04:45:00* Test Item Value Reference Range Interpretation Comments Thyroid Stimulating Hormone (TSH) (test code = 68157-0) 0.634 0.350-4.940 [facility]udaerum or plasma sodium measurement (moles/volume)2019-10-17 04:45:00* Test Item Value Reference Range Interpretation Comments Sodium Level (test code = 2951-2) 143 136-145 [facility]udaerum or plasma potassium measurement (moles/volume)2019-10-17 04:45:00* Test Item Value Reference Range Interpretation Comments Potassium Level (test code = 2823-3) 3.8 3.5-5.1 [facility]udaerum or plasma chloride measurement (moles/volume)2019-10-17 04:45:00* Test Item Value Reference Range Interpretation Comments Chloride Level (test code = 2075-0) 109 98-107 [facility]udaerum or plasma carbon dioxide, total measurement (moles/volume)2019-10-17 04:45:00* Test Item Value Reference Range Interpretation Comments Carbon Dioxide Level (test code = 2028-9) 25 22-29 [facility]udaerum or plasma anion spy7784-97-83 04:45:00* Test Item Value Reference Range Interpretation Comments Anion Gap (test code = 57773-6) 12.8 8-16 [facility] or plasma urea nitrogen measurement (mass/volume)2019-10-17 04:45:00* Test Item Value Reference Range Interpretation Comments Blood Urea Nitrogen (test code = 3094-0) 11 7-26 [facility] or plasma creatinine measurement (mass/volume)2019-10-17 04:45:00* Test Item Value Reference Range Interpretation Comments Creatinine (test code = 2160-0) 0.81 0.72-1.25 [facility]udaerum or plasma urea nitrogen/creatinine mass dlgmz9667-61-98 04:45:00* Test Item Value Reference Range Interpretation Comments BUN/Creatinine Ratio (test code = 3097-3) 14 6-25 [facility] WorthEstimated glomerular filtration rate (GFR) jegvplfehvbdt6040-51-89 04:45:00* Test Item Value Reference Range Interpretation Comments Estimat Glomerular Filtration Rate (test code = 373421202) > 60 >60 Ranges were taken from the National Kidney Disease Education Program and the [facility] Kidney Foundation literature.Reference ranges:60 or greater: Ugivnz73-38 ( for 3 consecutive months): Chronic kidney disease 15 or less: Kidney failureTexas Health Southwest Fort WorthGlucose dlmzmvgwnmn0483-41-09 04:45:00* Test Item Value Reference Range Interpretation Comments Glucose Level (test code = FAO7082) 103 74-118 [facility]udaerum or plasma calcium measurement (mass/volume)2019-10-17 04:45:00* Test Item Value Reference Range Interpretation Comments Calcium Level (test code = 01711-3) 8.7 8.4-10.2 [facility] WorthFluoroscopic procedure less than one hour wnwifvir3456-30-00 04:45:00* Test Item Value Reference Range Interpretation Comments Hemoglobin A1c Percent (test code = Hemoglobin A1c Percent) 7.7 4.0-7.0 [facility] total bilirubin measurement (mass/volume)2019-10-17 04:45:00* Test Item Value Reference Range Interpretation Comments Total Bilirubin (test code = 1975-2) 0.5 0.2-1.2 [facility] procedure less than one hour [id number] 04:45:00* Test Item Value Reference Range Interpretation Comments Aspartate Amino Transf (AST/SGOT) (test code = Aspartate Amino Transf (AST/SGOT)) 25 5-34 [facility] alanine aminotransferase measurement (enzymatic activity/volume)2019-10-17 04:45:00* Test Item Value Reference Range Interpretation Comments Alanine Aminotransferase (ALT/SGPT) (test code = 1742-6) 21 0-55 [facility] or plasma protein measurement (mass/volume)2019-10-17 04:45:00* Test Item Value Reference Range Interpretation Comments Total Protein (test code = 2885-2) 6.4 6.5-8.1 [facility] plasma albumin measurement (mass/volume)2019-10-17 04:45:00* Test Item Value Reference Range Interpretation Comments Albumin (test code = 1751-7) 3.3 3.5-5.0 [facility] globulin measurement (mass/volume) 2019-10-17 04:45:00* Test Item Value Reference Range Interpretation Comments Globulin (test code = 06071-7) 3.1 2.3-3.5 [facility] plasma albumin/globulin mass [id number] 04:45:00* Test Item Value Reference Range Interpretation Comments Albumin/Globulin Ratio (test code = 1759-0) 1.1 0.8-2.0 [facility] alkaline phosphatase measurement (enzymatic activity/volume)2019-10-17 04:45:00* Test Item Value Reference Range Interpretation Comments Alkaline Phosphatase (test code = 6768-6) 52 40-150 [facility] plasma triglyceride measurement (mass/volume)2019-10-17 04:45:00* Test Item Value Reference Range Interpretation Comments Triglycerides Level (test code = 2571-8) 118 0-149 [facility] plasma cholesterol measurement (mass/volume)2019-10-17 04:45:00* Test Item Value Reference Range Interpretation Comments Cholesterol Level (test code = 2093-3) 130 0-199 Less than 200 mg/dL Low Cblh493 - 239 mg/dL Borderline Vorj771 m g/dl and greater High Risk [facility] plasma cholesterol in LDL measurement (mass/volume) 2019-10-17 04:45:00* Test Item Value Reference Range Interpretation Comments LDL Cholesterol (test code = 2089-1) 54 60-130 [facility] plasma cholesterol in HDL measurement (mass/volume)2019-10-17 04:45:00* Test Item Value Reference Range Interpretation Comments HDL Cholesterol (test code = 2085-9) 52 40-60 [facility] plasma total cholesterol/cholesterol in HDL mass [id number] 04:45:00* Test Item Value Reference Range Interpretation Comments Cholesterol/HDL Ratio (test code = 9830-1) 2.5 3.9-4.7 [facility] plasma thyrotropin measurement by detection limit <= 0.005 miu/l (units/volume)2019-10-17 04:45:00* Test Item Value Reference Range Interpretation Comments Thyroid Stimulating Hormone (TSH) (test code = 54570-5) 0.634 0.350-4.940 [facility]CT CHEST [id number] 21:04:00 [facility] [address] [place] [address] Patient Name: KENNETH DUARTE MR #: [id number] : 1945 Age/Sex: 74/M Req #: [id number] [facility] Physician: TRACY VASQUEZ MD Ordered by: TRACY VASQUEZ MD Report #: [id number] Location: MED/SURG Room/Bed: 10-09 Procedure: CT/CT CHEST W Exam Date: 10/16/19 Exam Time: 2034 REPORT STATUS: Signed CT chest pulmonary embolism pro tocol CPT code: 28848 INDICATION: SOB, R/O PE [id number] 5 TECHNIQUE: Thin collimation axial images [...] set by the Radiation Protocol Commi ttee ([facility]). Dose reduction techniques used: Automated exposure [...] TRACY VASQUEZ MD CHEST SINGLE (PORTABLE)2019-10-16 13:34:00 [place] [address] Patient Name: KENNETH DUARTE MR #: [id number] : 1945 Age/Sex: 74/M Req #: [id number] Adm Physician: Ordered by: AZUL RICO MD Report # : [id number] Location: ER Room/Bed: Procedure: [id number] DX/CHEST SINGLE (PO RTABLE) Exam Date: 10/16/19 [...] 1:36 PM Dictated By: Jana SCHULTZ MD [id number] Transcri bed By: JOCELYN on 10/16/19 0246 COPY TO: AZUL RICO MD Fluoroscopic procedure less than one hour ahtbfeiz3858-51-03 13:03:00* Test Item Value Reference Range Interpretation [...] complexity tests.Testing performed by [facility] [address] [phone] Director: Clark Cortez M.D.CLIA # [id number] [facility] Fluoroscopic procedure less than one hour dpehoqmf1328-92-24 13:03:00* Test Item Value Reference Range Interpretation [...] complexity tests.Testing performed by [facility] [address] [phone] Director: Clark Cortez M.D.CLIA # [id number] [facility] Prothrombin time (PT) in platelet poor plasma by coagulation oquyw9720-04-92 12:45:00* Test Item Value Reference Range Interpretation Comments Prothrombin Time (test code = 5902-2) 11.9 11.9-14.5 [facility] WorthINR in Platelet poor plasma by Coagulation amvor3454-16-15 12:45:00* Test Item Value Reference Range Interpretation Comments Prothromb Time International Ratio (test code = 6301-6) 0.83 Oral Anticoagulant Therapy INR Values:1. Low Intensity Therapy 1.5 - 2.02 . Moderate Intensity Therapy 2.0 - 3.03. High Intensity Therapy(1) 2.5 - 3. 54. High Intensity Therapy(2) 3.0 - 4.05. Panic Value INR > 5.0 [facility] WorthActivated partial thromboplastin time (aPTT) in platelet poor plasma by coagulation voonk5458-16-61 12:45:00* Test Item Value Reference Range Interpretation Comments Activated Partial Thromboplast Time (test code = 24300-6) 26.4 23.8-35.5 [facility] plasma magnesium measurement (mass/volume)2019-10-16 12:45:00* Test Item Value Reference Range Interpretation Comments Magnesium Level (test code = 84823-0) 1.4 1.3-2.1 [facility] WorthBNP Jum-wQkc1886-94-07 12:45:00* Test Item Value Reference Range Interpretation Comments B-Type Natriuretic Peptide (test code = 34664-9) 92.3 0-100 [facility] WorthProthrombin time (PT) in platelet poor plasma by coagulation ejpuw8944-79-65 12:45:00* Test Item Value Reference Range Interpretation Comments Prothrombin Time (test code = 5902-2) 11.9 11.9-14.5 [facility] WorthINR in Platelet poor plasma by Coagulation sbrgi0974-39-21 12:45:00* Test Item Value Reference Range Interpretation Comments Prothromb Time International Ratio (test code = 6301-6) 0.83 Oral Anticoagulant Therapy INR Values:1. Low Intensity Therapy 1.5 - 2.02 . Moderate Intensity Therapy 2.0 - 3.03. High Intensity Therapy(1) 2.5 - 3. 54. High Intensity Therapy(2) 3.0 - 4.05. Panic Value INR > 5.0 [facility] WorthActivated partial thromboplastin time (aPTT) in platelet poor plasma by coagulation [id number] 12:45:00* Test Item Value Reference Range Interpretation Comments Activated Partial Thromboplast Time (test code = 13078-2) 26.4 23.8-35.5 [facility] plasma magnesium measurement (mass/volume)2019-10-16 12:45:00* Test Item Value Reference Range Interpretation Comments Magnesium Level (test code = 12565-7) 1.4 1.3-2.1 [facility] Hfe-iOco1500-30-07 12:45:00* Test Item Value Reference Range Interpretation Comments B-Type Natriuretic Peptide (test code = 27257-5) 92.3 0-100 [facility]
[2020-02-25 13:46] LABS: ALANINE AMINOTRANSFERASE 24 IU/L (0-55); ALBUMIN 3.8 g/dL (3.5-5.0); ALBUMIN/GLOBULIN RATIO 1.2 (0.8-2.0); ALKALINE PHOSPHATASE 59 IU/L (40-150); ANION GAP 13.1 mmol/L (8-16); BLOOD UREA NITROGEN 15 mg/dL (7-26); BUN/CREATININE RATIO 17 (6-25); CALCIUM 9.2 mg/dL (8.4-10.2); CARBON DIOXIDE 26 mmol/L (22-29); CHLORIDE 106 mmol/L (98-107); CREATININE, SERUM 0.89 mg/dL (0.72-1.25); EST GLOMERULAR FILTRATION RATE > 60 ML/MIN (60-); GLUCOSE 159 mg/dL (74-118); POTASSIUM 4.1 mmol/L (3.5-5.1); SODIUM 141 mmol/L (136-145)
--- NOTE | 2020-02-25 14:49 | Emergency Department Note ---
History of Present Illnes History of Present Illness Chief Complaint: Abdominal Complaints History of Present Illness This is a 74 year old male YESTERDAY BEGAN HAVING MULTIPLE EPISODES OF DIARRHEA. C/O OF ANAL AREA FEELING RAW. USING PREPARATION H FOR HEMORROIDS. DENIES ANY ABDOMINAL PAIN, NAUSEA OR VOMITING. Historian: Patient Arrival Mode: Car Floor Surfacer Required: No Onset (how long ago): day(s) (1) Location: NO PAIN, JUST IRRITATION ANAL AREA Quality: IRRITATION/INFLAMED Radiation: Reports non-radiation Severity: mild Onset quality: gradual Timing of current episode: constant Chronicity: new Context: Denies recent illness Relieving factors: none Exacerbating factors: none Associated symptoms: Reports denies other symptoms Past Medical/Family History Physician Review I have reviewed the patient's past medical and family history. Any updates have been documented here. Past Medical History Recent Fever: No Clinical Suspicion of Infectio: No New/Unexplained Change in Ment: No Past Medical History: Hypertension, Diabetes, Cancer Other Medical History: COLON CANCER HARD OF HEARING Past Surgical History: Cholecysctectomy Other Surgery: PACEMAKER, COLON CANCER 2013, HERNIED DISK, ROTOR CUFF,LEFT EYE SURGERY, Social History Smoking Cessation: Never Smoker Counseling Performed: No Alcohol Use: None Any Illegal Drug Use: No TB Exposure/Symptoms: No Physically hurt or threatened: No Family History Family history of heart diseas: No Other Last Tetanus: UNKNOWN Review of Systems Review of Systems Constitutional: Reports no symptoms EENTM: Reports no symptoms Cardiovascular: Reports no symptoms Respiratory: Reports no symptoms Gastrointestinal: Reports as per HPI Genitourinary: Reports no symptoms Musculoskeletal: Reports no symptoms Integumentary: Reports no symptoms Neurological: Reports no symptoms Psychological: Reports no symptoms Endocrine: Reports no symptoms Hematological/Lymphatic: Reports no symptoms Physical Exam Related Data Allergies: Coded Allergies: No Known Allergies (Unverified , 02/25/20) Triage Vital Signs Vital Signs Date Time Temp Pulse Resp B/P (MAP) Pulse Ox O2 Delivery O2 Flow Rate FiO2 02/25/20 13:09 98.2 82 18 149/79 99 Room Air Vital signs reviewed: Yes Physical Exam CONSTITUTIONAL Constitutional: Present well-developed, Present well-nourished HENT HENT: Present normocephalic, Present atraumatic, Present oropharynx clear/moist, Present nose normal HENT L/R: Present left ext ear normal, Present right ext ear normal EYES Eyes: Reports PERRL, Reports conjunctivae normal NECK Neck: Present ROM normal PULMONARY Pulmonary: Present effort normal, Present breath sounds normal CARDIOVASCULAR Cardiovascular: Present regular rhythm, Present heart sounds normal, Present capillary refill normal, Present normal rate GASTROINTESTINAL Abdominal: Present soft, Present nontender, Present bowel sounds normal; Absent tender, Absent guarding, Absent rebound GENITOURINARY Genitourinary: Present exam deferred, Present other (MILD ERYTHEMA/INFLAMMATION/TENDERNESS PERIANAL AREA, NO EXT HEMORRHOIDS NOTED) SKIN Skin: Present warm, Present dry MUSCULOSKELETAL Musculoskeletal: Present ROM normal NEUROLOGICAL Neurological: Present alert, Present oriented x 3, Present no gross motor or sensory deficits PSYCHOLOGICAL Psychological: Present mood/affect normal, Present judgement normal Results Laboratory Result Diagram: 02/25/20 1315 02/25/20 1315 Laboratory Laboratory Tests Test 02/25/20 13:15 White Blood Count 5.50 x10e3/uL (4.8-10.8) Red Blood Count 4.47 x10e6/uL (4.3-5.7) Hemoglobin 14.3 g/dL (14.0-18.0) Hematocrit 41.3 % (38.2-49.6) Mean Corpuscular Volume 92.4 fL (81-99) Mean Corpuscular Hemoglobin 32.0 pg (28-32) Mean Corpuscular Hemoglobin Concent 34.6 g/dL (31-35) Red Cell Distribution Width 13.0 % (11.7-14.4) Platelet Count 170 x10e3/uL (140-360) Neutrophils (%) (Auto) 64.6 % (38.7-80.0) Lymphocytes (%) (Auto) 24.4 % (18.0-39.1) Monocytes (%) (Auto) 8.2 % (4.4-11.3) Eosinophils (%) (Auto) 1.8 % (0.0-6.0) Basophils (%) (Auto) 0.5 % (0.0-1.0) Neutrophils # (Auto) 3.6 (2.1-6.9) Lymphocytes # (Auto) 1.3 (1.0-3.2) Monocytes # (Auto) 0.5 (0.2-0.8) Eosinophils # (Auto) 0.1 (0.0-0.4) Basophils # (Auto) 0.0 (0.0-0.1) Absolute Immature Granulocyte (auto 0.03 x10e3/uL (0-0.1) Sodium Level 141 mmol/L (136-145) Potassium Level 4.1 mmol/L (3.5-5.1) Chloride Level 106 mmol/L (98-107) Carbon Dioxide Level 26 mmol/L (22-29) Anion Gap 13.1 mmol/L (8-16) Blood Urea Nitrogen 15 mg/dL (7-26) Creatinine 0.89 mg/dL (0.72-1.25) Estimat Glomerular Filtration Rate > 60 ML/MIN (60-) BUN/Creatinine Ratio 17 (6-25) Glucose Level 159 mg/dL (74-118) Calcium Level 9.2 mg/dL (8.4-10.2) Total Bilirubin 0.5 mg/dL (0.2-1.2) Aspartate Amino Transf (AST/SGOT) 22 IU/L (5-34) Alanine Aminotransferase (ALT/SGPT) 24 IU/L (0-55) Alkaline Phosphatase 59 IU/L (40-150) Total Protein 6.9 g/dL (6.5-8.1) Albumin 3.8 g/dL (3.5-5.0) Globulin 3.1 g/dL (2.3-3.5) Albumin/Globulin Ratio 1.2 (0.8-2.0) Lab results reviewed: Yes Assessment & Plan Medical Decision Making MDM DIARRHEA SINCE YESTERDAY WITH PERIANAL INFLAMM - CHECK CBC, CHEM R/O LEUKOCYTOSIS, ELECTROLYTE ABNL, RENAL INSUFF Reassessment Reassessment DC HOME, RECOMMEND OTC HEMORRHOID CREAM WITH HYDROCORTISONE, DRINK PLENTY OF FLUIDS, F/U PCP Assessment & Plan Final Impression: (1) Perianal irritation Depart Disposition: HOME, SELF-CARE Last Vital Signs Date Time Temp Pulse Resp B/P (MAP) Pulse Ox O2 Delivery O2 Flow Rate FiO2 02/25/20 13:09 98.2 82 18 149/79 99 Room Air Home Meds Active Scripts Neomyc/Colist/Hydrocort/Thonzn (Cortisporin-Tc Ear Suspension) 10 Ml Drops.susp, 3 DROP EACH EAR BID, #1 Prov:SHAHNAZ LOWE MD 02/13/20 Reported Medications Aspirin (ASPIR 81) 81 Mg Tablet.dr, 81 MG PO DAILY 10/18/19 Insulin Degludec (Tresiba Flextouch U-100) 100 Unit/1 Ml Insuln.pen, 17 UNITS SQ DAILY 10/16/19 Zinc Sulfate (ZINC SULFATE) 220 Mg Capsule, 50 MG PO DAILY 10/16/19 [Bedoyecta] No Conflict Check, 1 CAP PO DAILY 10/16/19 Amlodipine Besylate (AMLODIPINE BESYLATE) 5 Mg Tablet, 2.5 MG PO BID, #30 TAB 10/16/19 Metformin Hcl (METFORMIN HCL) 500 Mg Tablet, 1000 MG PO BIDWM, #60 TAB 10/16/19 [Lisinopril] No Conflict Check, 20 MG PO BID 10/16/19 [Rosuvastatin] No Conflict Check, 20 MG PO DAILY 10/16/19 Pentoxifylline (PENTOXIFYLLINE) 400 Mg Tablet.er, 400 MG PO BIDWM, #30 TAB 10/16/19 Dicyclomine Hcl (DICYCLOMINE HCL) 10 Mg Capsule, 10 MG PO QID 10/16/19 AZUL RICO MD Feb 25, 2020 14:49
[2020-02-25 14:58] VITALS: BP 145/86
== END 2020-02-25 14:54 | disposition home or self-care (01) ==
LOC: ER 13:40
DX: K62.89 Other specified diseases of anus and rectum (principal); E11.65 Type 2 diabetes mellitus with hyperglycemia; I10 Essential (primary) hypertension; Z95.0 Presence of cardiac pacemaker; Z85.038 Personal history of other malignant neoplasm of large intestine
CPT/HCPCS: 36415; 80053; 85025; 99283

== ENCOUNTER 2022-05-02 21:55 | Observation (INO) | payer MEDICARE, OTHER ==
[~2022-05-02] VITALS: Ht 177.8 cm; Wt 106.6 kg
[2022-05-02] MEDS ORDERED: SODIUM CHLORIDE FLUSH 10 ML SYR IV PRN (22:14)
[2022-05-02] MEDS ORDERED: ASPIRIN 325 MG TAB PO ONE (22:15)
[2022-05-02 22:19] LABS: BASOPHILS % 0.2 % (0.0-1.0); EOSINOPHILS # (AUTO) 0.1 (0.0-0.4); EOSINOPHILS % 2.8 % (0.0-6.0); HEMATOCRIT 42.3 % (38.2-49.6); HEMOGLOBIN 13.6 g/dL (14.0-18.0); LYMPHOCYTES # (AUTO) 1.3 (1.0-3.2); LYMPHOCYTES % 31.7 % (18.0-39.1); MEAN CORPUSCULAR HEMOGLOBIN 31.7 pg (28-32); MEAN CORPUSCULAR HGB CONC 32.2 g/dL (31-35); MEAN CORPUSCULAR VOLUME 98.6 fL (81-99); MONOCYTES # (AUTO) 0.4 (0.2-0.8); MONOCYTES % 10.4 % (4.4-11.3); NEUTROPHILS # (AUTO) 2.3 (2.1-6.9); NEUTROPHILS % 54.7 % (38.7-80.0); PLATELET COUNT 164 x10e3/uL (140-360); RED BLOOD COUNT 4.29 x10e6/uL (4.3-5.7); RED CELL DISTRIBUTION WIDTH 12.2 % (11.7-14.4)
[2022-05-02 22:28] LABS: INR 0.96
[2022-05-02 22:29] LABS: PARTIAL THROMBOPLASTIN TIME 27.1 seconds (23.8-35.5)
[2022-05-02 22:36] LABS: ALBUMIN 3.8 g/dL (3.5-5.0); ALBUMIN/GLOBULIN RATIO 1.1 (0.8-2.0); ANION GAP 15.9 mmol/L (8-16); CREATININE, SERUM 0.92 mg/dL (0.72-1.25); POTASSIUM 3.9 mmol/L (3.5-5.1)
[2022-05-02 22:45] LABS: CLARITY,URINE CLEAR (CLEAR); COLOR,URINE YELLOW (YELLOW); KETONES,URINE NEGATIVE (NEGATIVE); LEUKOCYTE ESTERASE ,URINE NEGATIVE (NEGATIVE); NITRITE,URINE NEGATIVE (NEGATIVE); PHENCYCLIDINE SCREEN,URINE NEGATIVE (NEGATIVE); PROTEIN,URINE DIPSTICK NEGATIVE (NEGATIVE)
[2022-05-02 22:46] LABS: AMPHETAMINES SCREEN,URINE NEGATIVE (NEGATIVE); BENZODIAZEPINES SCREEN,URINE NEGATIVE (NEGATIVE); URINE UROBILINOGEN 0.2 mg/dL (0.2 - 1)
[2022-05-02 22:51] LABS: RBC,URINE 0-5 /HPF (0-5); WBC,URINE (MAN) 0-5 /HPF (0-5)
[2022-05-02 22:52] LABS: BACTERIA,URINE RARE /HPF; EPITHELIAL CELLS,URINE RARE /LPF
[2022-05-02] MEDS ORDERED: ONDANSETRON HCL INJ 2MG/ML 2ML 2 MG/ML VIAL IV PRN (23:45)
[2022-05-02] MEDS ORDERED: DEXTROSE 50% SYRINGE 50 ML IV PRN (23:45)
[2022-05-02] MEDS ORDERED: ASPIRIN 81 MG CHEW TAB PO ONE (23:45)
[2022-05-03] VITALS (7 sets, daily range): BP systolic 127–138; BP diastolic 59–73
[2022-05-03] MEDS ORDERED: FUROSEMIDE INJ 10 MG/ML 4 ML VIAL IV ONE (01:15)
[2022-05-03] MEDS ORDERED: MELOXICAM7.5 MG PO (01:54)
[2022-05-03] MEDS ORDERED: GLIPIZIDE-METF1 EAC1 PO (01:54)
[2022-05-03] MEDS ORDERED: CLOPIDOGREL75 MG PO (01:54)
[2022-05-03] MEDS: INSULIN REGULAR, HUMAN 100 UNIT/1 ML SQ SCH ×2 (07:30→11:30)
[2022-05-03] MEDS ORDERED: DEXTROSE 50% SYRINGE 50 ML IV PRN (13:00)
[2022-05-03] MEDS ORDERED: ONDANSETRON HCL INJ 2MG/ML 2ML 2 MG/ML VIAL IV PRN (13:00)
[2022-05-03] MEDS ORDERED: HYDRALAZINE HCL 20 MG/ML VIAL IV PRN (13:00)
[2022-05-03] MEDS ORDERED: DOCUSATE SODIUM 100 MG CAP PO PRN (13:00)
[2022-05-03] MEDS ORDERED: ACETAMINOPHEN 325 MG TAB PO PRN (13:00)
[2022-05-03] MEDS ORDERED: SIMETHICONE 80 MG CHEW PO PRN (13:00)
[2022-05-03] MEDS ORDERED: BENZONATATE 100 MG CAP PO PRN (13:00)
[2022-05-03] MEDS ORDERED: POTASSIUM CHLORIDE 20 MEQ TAB CR PO PRN (13:00)
[2022-05-03] MEDS ORDERED: ALBUTEROL/IPRATROPIUM 3 ML NEB NEB PRN (13:00)
[2022-05-03] MEDS ORDERED: DIPHENHYDRAMINE HCL 25 MG CAP PO PRN (13:00)
[2022-05-03 13:47] LABS: BASOPHILS % 0.5 % (0.0-1.0); EOSINOPHILS # (AUTO) 0.1 (0.0-0.4); EOSINOPHILS % 2.4 % (0.0-6.0); HEMATOCRIT 42.3 % (38.2-49.6); HEMOGLOBIN 13.8 g/dL (14.0-18.0); LYMPHOCYTES # (AUTO) 1.2 (1.0-3.2); LYMPHOCYTES % 32.5 % (18.0-39.1); MEAN CORPUSCULAR HEMOGLOBIN 31.7 pg (28-32); MEAN CORPUSCULAR HGB CONC 32.6 g/dL (31-35); MONOCYTES # (AUTO) 0.3 (0.2-0.8); MONOCYTES % 8.8 % (4.4-11.3); NEUTROPHILS # (AUTO) 2.1 (2.1-6.9); NEUTROPHILS % 55.8 % (38.7-80.0); PLATELET COUNT 154 x10e3/uL (140-360); RED BLOOD COUNT 4.36 x10e6/uL (4.3-5.7); RED CELL DISTRIBUTION WIDTH 11.9 % (11.7-14.4)
[2022-05-03] MEDS ORDERED: PENTOXIFYLLINE 400 MG TAB CR PO SCH (17:00)
[2022-05-03] MEDS ORDERED: ENOXAPARIN SOD INJ 40 MG/0.4 ML SYR SC SCH (17:00)
[2022-05-03] MEDS ORDERED: AMLODIPINE BESYLATE 5 MG TAB PO SCH (17:00)
[2022-05-03] MEDS ORDERED: MELATONIN 5 MG TABLET PO PRN (21:00)
[2022-05-04] MEDS ORDERED: PANTOPRAZOLE SOD 40 MG TABEC PO SCH (07:30)
[2022-05-04] MEDS ORDERED: CLOPIDOGREL BISULFATE 75 MG TAB PO SCH (09:00)
[2022-05-04] MEDS ORDERED: ASPIRIN 81 MG CHEW TAB PO SCH (09:00)
== END 2022-05-03 14:34 | disposition home or self-care (01) ==
LOC: ER 22:05 → ERHOLD 23:42 → MED/SURG2 05-03 01:34
PROVIDERS: ADMIT Internal Medicine; ATTEND Internal Medicine
DX: E11.69 Type 2 diabetes mellitus with other specified complication (principal); E78.5 Hyperlipidemia, unspecified; E66.01 Morbid (severe) obesity due to excess calories; Z68.33 Body mass index [BMI] 33.0-33.9, adult; I49.5 Sick sinus syndrome; Z95.0 Presence of cardiac pacemaker; I10 Essential (primary) hypertension; Z85.038 Personal history of other malignant neoplasm of large intestine; I25.10 Atherosclerotic heart disease of native coronary artery without angina pectoris; Z20.822 Contact with and (suspected) exposure to COVID-19
CPT/HCPCS: 0223U; 36415 ×2; 71045; 80053; 80307; 81001; 82553; 82948; 83690; 83880; 84484; 85025 ×2; 85610; 85730; 93005; 94799; 99284; G0378 ×2; J1817; J1940; 82550

== ENCOUNTER 2022-05-26 11:44 | Emergency (ER) | payer MEDICARE, MEDICAID ==
[~2022-05-26] VITALS: Ht 177.8 cm; Wt 98.9 kg
[~2022-05-26 11:44] MED LIST changes: +CLOPIDOGREL75 MG PO; +GLIPIZIDE-METF1 EAC1 PO; +MELOXICAM7.5 MG PO
[2022-05-26] MEDS ORDERED: HYDROCODONE/APAP 5MG-325MG TAB PO ONE (12:45)
[2022-05-26] MEDS ORDERED: CYCLOBENZAPRINE HCL 10 MG TAB PO ONE (12:45)
[2022-05-26 13:06] LABS: BASOPHILS % 0.7 % (0.0-1.0); EOSINOPHILS # (AUTO) 0.1 (0.0-0.4); EOSINOPHILS % 2.9 % (0.0-6.0); HEMATOCRIT 42.3 % (38.2-49.6); HEMOGLOBIN 13.7 g/dL (14.0-18.0); LYMPHOCYTES # (AUTO) 0.8 (1.0-3.2); LYMPHOCYTES % 25.8 % (18.0-39.1); MEAN CORPUSCULAR HEMOGLOBIN 31.6 pg (28-32); MEAN CORPUSCULAR HGB CONC 32.4 g/dL (31-35); MEAN CORPUSCULAR VOLUME 97.5 fL (81-99); MONOCYTES # (AUTO) 0.4 (0.2-0.8); MONOCYTES % 12.1 % (4.4-11.3); NEUTROPHILS # (AUTO) 1.8 (2.1-6.9); NEUTROPHILS % 58.5 % (38.7-80.0); PLATELET COUNT 171 x10e3/uL (140-360); RED BLOOD COUNT 4.34 x10e6/uL (4.3-5.7)
[2022-05-26 13:15] LABS: PROTHROMBIN TIME 13.4 seconds (11.9-14.5)
[2022-05-26 13:21] LABS: ALBUMIN 3.6 g/dL (3.5-5.0); CALCIUM 8.8 mg/dL (8.4-10.2); CREATININE, SERUM 0.81 mg/dL (0.72-1.25)
[2022-05-26] MEDS ORDERED: SODIUM CHLORIDE 0.9% 1000ML 1,000 ML IV ONE (13:45)
[2022-05-26] MEDS ORDERED: IOPAMIDOL 370 MG/ML 100 ML INFUS..BTL INJ ONE (13:52)
[2022-05-26] MEDS ORDERED: ANAPROX DS550 MG PO (15:09)
[2022-05-26] MEDS ORDERED: METHOCARBAMOL750 MG PO (15:09)
== END 2022-05-26 15:38 | disposition home or self-care (01) ==
LOC: ER 11:55
DX: M54.50 Low back pain, unspecified (principal); R05.9 Cough, unspecified; I10 Essential (primary) hypertension; E11.65 Type 2 diabetes mellitus with hyperglycemia; E78.5 Hyperlipidemia, unspecified; Z95.810 Presence of automatic (implantable) cardiac defibrillator; Z85.038 Personal history of other malignant neoplasm of large intestine
CPT/HCPCS: 36415; 71045; 74177; 80053; 84484; 85025; 85610; 93005; 99284; J7030; Q9967

== ENCOUNTER 2022-06-21 08:36 | Inpatient (IN) | payer MEDICARE ==
[~2022-06-21] VITALS: Ht 172.7 cm; Wt 100.7 kg
[~2022-06-21 08:36] MED LIST changes: +ANAPROX DS550 MG PO; +METHOCARBAMOL750 MG PO
[2022-06-21 08:54] LABS: BASOPHILS % 0.6 % (0.0-1.0); EOSINOPHILS # (AUTO) 0.1 (0.0-0.4); EOSINOPHILS % 3.1 % (0.0-6.0); HEMATOCRIT 44.3 % (38.2-49.6); HEMOGLOBIN 14.1 g/dL (14.0-18.0); LYMPHOCYTES # (AUTO) 1.1 (1.0-3.2); LYMPHOCYTES % 31.8 % (18.0-39.1); MEAN CORPUSCULAR HEMOGLOBIN 31.3 pg (28-32); MEAN CORPUSCULAR HGB CONC 31.8 g/dL (31-35); MEAN CORPUSCULAR VOLUME 98.2 fL (81-99); MONOCYTES # (AUTO) 0.4 (0.2-0.8); MONOCYTES % 10.3 % (4.4-11.3); NEUTROPHILS # (AUTO) 1.9 (2.1-6.9); NEUTROPHILS % 53.9 % (38.7-80.0); PLATELET COUNT 167 x10e3/uL (140-360); RED BLOOD COUNT 4.51 x10e6/uL (4.3-5.7); RED CELL DISTRIBUTION WIDTH 12.2 % (11.7-14.4)
[2022-06-21 09:06] LABS: INR 0.91; PROTHROMBIN TIME 12.5 seconds (11.9-14.5)
[2022-06-21 09:07] LABS: PARTIAL THROMBOPLASTIN TIME 27.6 seconds (23.8-35.5)
[2022-06-21 09:17] LABS: ALBUMIN 3.7 g/dL (3.5-5.0); ANION GAP 14.7 mmol/L (8-16); CREATININE, SERUM 0.74 mg/dL (0.72-1.25); MAGNESIUM 1.4 MG/DL (1.3-2.1); POTASSIUM 3.7 mmol/L (3.5-5.1)
[2022-06-21 09:23] LABS: CREATINE KINASE MB 9.8 ng/mL (0-5.0)
[2022-06-21] MEDS ORDERED: SODIUM CHLORIDE 0.9% 500ML 500 ML IV ONE (09:45)
[2022-06-21] MEDS ORDERED: SODIUM CHLORIDE 0.9% 500ML 500 ML ONE (09:50)
[2022-06-21] MEDS ORDERED: IOPAMIDOL 370 MG/ML 100 ML INFUS..BTL INJ ONE (09:57)
[2022-06-21] MEDS ORDERED: NITROGLYCERIN 0.4 MG SUBL SL PRN (10:15)
[2022-06-21] MEDS ORDERED: Morphine 2mg Syringe 2 MG/ML SYR IV PRN (10:15)
[2022-06-21] MEDS ORDERED: ONDANSETRON HCL INJ 2MG/ML 2ML 2 MG/ML VIAL IV PRN (10:15)
[2022-06-21] MEDS ORDERED: DEXTROSE 50% SYRINGE 50 ML IV PRN ×2 (10:30→14:45)
[2022-06-21] MEDS: METOPROLOL TARTRATE 25 MG TAB PO SCH ×2 (10:46→21:22)
[2022-06-21] MEDS: FAMOTIDINE 20 MG/2 ML VIAL IV SCH ×2 (10:46→21:21)
[2022-06-21] MEDS: CLOPIDOGREL BISULFATE 75 MG TAB PO SCH (10:47)
[2022-06-21 11:15] VITALS: BP 152/78
[2022-06-21 11:32] VITALS: BP 152/78
[2022-06-21] MEDS: INSULIN LISPRO 100 UNIT/1 ML 3ML VIAL SQ SCH ×3 (12:20→21:31)
[2022-06-21] MEDS ORDERED: FUROSEMIDE INJ 10 MG/ML 4 ML VIAL IV ONE (12:45)
[2022-06-21] MEDS ORDERED: POTASSIUM CHLORIDE 20 MEQ TAB CR PO ONE (13:00)
[2022-06-21] MEDS ORDERED: LIDOCAINE 4% PATCH TP PRN (14:45)
[2022-06-21] MEDS ORDERED: ACETAMINOPHEN 325 MG TAB PO PRN (14:45)
[2022-06-21] MEDS ORDERED: POTASSIUM CHLORIDE 20 MEQ TAB CR PO PRN (14:45)
[2022-06-21] MEDS ORDERED: DOCUSATE SODIUM 100 MG CAP PO PRN (14:45)
[2022-06-21] MEDS ORDERED: CHLORASEPTIC SPRAY 177 ML BTL MM PRN (14:45)
[2022-06-21] MEDS ORDERED: ALBUTEROL/IPRATROPIUM 3 ML NEB NEB PRN (14:45)
[2022-06-21] MEDS ORDERED: BENZONATATE 100 MG CAP PO PRN (14:45)
[2022-06-21] MEDS ORDERED: SIMETHICONE 80 MG CHEW PO PRN (14:45)
[2022-06-21] MEDS ORDERED: DIPHENHYDRAMINE HCL 25 MG CAP PO PRN (14:45)
[2022-06-21] MEDS ORDERED: MELATONIN 5 MG TABLET PO PRN (14:45)
[2022-06-21] MEDS ORDERED: HYDRALAZINE HCL 20 MG/ML VIAL IV PRN (14:45)
[2022-06-21 15:47] VITALS: BP 136/66
[2022-06-21 16:31] LABS: CREATINE KINASE MB 9.6 ng/mL (0-5.0)
[2022-06-21] MEDS: ENOXAPARIN SOD INJ 40 MG/0.4 ML SYR SC SCH (17:00)
[2022-06-21] MEDS: FUROSEMIDE INJ 10 MG/ML 2 ML VIAL IV SCH (17:00)
[2022-06-21 20:00] VITALS: BP 130/66
[2022-06-21 20:27] VITALS: BP 130/65
[2022-06-21 23:15] LABS: CREATINE KINASE MB 7.8 ng/mL (0-5.0)
[2022-06-22] VITALS (8 sets, daily range): BP systolic 107–138; BP diastolic 53–76
[2022-06-22 07:03] LABS: BASOPHILS % 0.3 % (0.0-1.0); EOSINOPHILS # (AUTO) 0.1 (0.0-0.4); EOSINOPHILS % 3.2 % (0.0-6.0); HEMATOCRIT 39.5 % (38.2-49.6); HEMOGLOBIN 13.7 g/dL (14.0-18.0); LYMPHOCYTES # (AUTO) 1.1 (1.0-3.2); LYMPHOCYTES % 29.6 % (18.0-39.1); MEAN CORPUSCULAR HEMOGLOBIN 31.9 pg (28-32); MEAN CORPUSCULAR HGB CONC 34.7 g/dL (31-35); MEAN CORPUSCULAR VOLUME 92.1 fL (81-99); MONOCYTES # (AUTO) 0.5 (0.2-0.8); MONOCYTES % 13.6 % (4.4-11.3); PLATELET COUNT 170 x10e3/uL (140-360); RED BLOOD COUNT 4.29 x10e6/uL (4.3-5.7); RED CELL DISTRIBUTION WIDTH 12.9 % (11.7-14.4)
[2022-06-22 07:32] LABS: ALBUMIN 3.7 g/dL (3.5-5.0); ALBUMIN/GLOBULIN RATIO 1.1 (0.8-2.0); ANION GAP 13.9 mmol/L (8-16); CALCIUM 9.2 mg/dL (8.4-10.2); CREATININE, SERUM 0.89 mg/dL (0.72-1.25); POTASSIUM 3.9 mmol/L (3.5-5.1)
[2022-06-22 07:39] LABS: CREATINE KINASE MB 7.2 ng/mL (0-5.0)
[2022-06-22] MEDS: PANTOPRAZOLE SOD 40 MG TABEC PO SCH (09:04)
[2022-06-22] MEDS: FAMOTIDINE 20 MG/2 ML VIAL IV SCH ×2 (09:05→21:17)
[2022-06-22] MEDS: CLOPIDOGREL BISULFATE 75 MG TAB PO SCH (09:05)
[2022-06-22] MEDS: METOPROLOL TARTRATE 25 MG TAB PO SCH ×2 (09:05→21:17)
[2022-06-22] MEDS: FUROSEMIDE INJ 10 MG/ML 2 ML VIAL IV SCH ×2 (09:06→16:26)
[2022-06-22] MEDS: INSULIN LISPRO 100 UNIT/1 ML 3ML VIAL SQ SCH ×4 (09:07→21:20)
[2022-06-22] MEDS ORDERED: OMEPRAZOLE40 MG PO (09:17)
[2022-06-22] MEDS ORDERED: METOPROLOL TART25 MG PO (09:17)
[2022-06-22] MEDS: ENOXAPARIN SOD INJ 40 MG/0.4 ML SYR SC SCH (16:26)
[2022-06-22] MEDS: DICYCLOMINE HCL 10 MG CAP PO SCH ×2 (18:00→21:00)
[2022-06-23] VITALS: BP 124/66
[2022-06-23 04:00] VITALS: BP 116/51
[2022-06-23 08:40] VITALS: BP 116/51
[2022-06-23 10:05] VITALS: BP 149/69
[2022-06-23] MEDS: METOPROLOL TARTRATE 25 MG TAB PO SCH (10:42)
[2022-06-23] MEDS: DICYCLOMINE HCL 10 MG CAP PO SCH ×2 (10:42→13:00)
[2022-06-23] MEDS: PANTOPRAZOLE SOD 40 MG TABEC PO SCH (10:44)
[2022-06-23] MEDS: FUROSEMIDE INJ 10 MG/ML 2 ML VIAL IV SCH (10:44)
[2022-06-23] MEDS: CLOPIDOGREL BISULFATE 75 MG TAB PO SCH (10:45)
[2022-06-23] MEDS: INSULIN LISPRO 100 UNIT/1 ML 3ML VIAL SQ SCH ×2 (10:51→13:01)
[2022-06-23] MEDS: FAMOTIDINE 20 MG/2 ML VIAL IV SCH (13:00)
[2022-06-23 13:09] VITALS: BP 125/67
[2022-06-23] MEDS ORDERED: LASIX40 MG PO (14:05)
[2022-06-23] MEDS ORDERED: POTASSIUM CHLO10 ME1 PO (14:06)
[2022-06-23] MEDS ORDERED: ONDANSETRON HCL 4 MG ORAL DISINTEGRATING TAB PO PRN (14:30)
[2022-06-23] MEDS ORDERED: FAMOTIDINE 20 MG TAB PO SCH ×2 (16:30→21:00)
== END 2022-06-23 15:05 | disposition home or self-care (01) | DRG 291 ==
LOC: ER 08:47 → ERHOLD 10:04 → MED/SURG2 11:20
PROVIDERS: ADMIT Internal Medicine; ATTEND Internal Medicine
DX: I11.0 Hypertensive heart disease with heart failure (principal); I50.31 Acute diastolic (congestive) heart failure; E11.9 Type 2 diabetes mellitus without complications; E78.5 Hyperlipidemia, unspecified; Z95.0 Presence of cardiac pacemaker; Z90.49 Acquired absence of other specified parts of digestive tract; Z85.038 Personal history of other malignant neoplasm of large intestine; Z87.891 Personal history of nicotine dependence; Z20.822 Contact with and (suspected) exposure to COVID-19; Z79.82 Long term (current) use of aspirin; Z79.84 Long term (current) use of oral hypoglycemic drugs; Z79.4 Long term (current) use of insulin
CPT/HCPCS: 36415; 71045; 71260; 80053; 80061; 82550; 82553; 82948; 83735; 83880; 84484; 85025; 85379; 85610; 85730; 93005; 93970; 94799; 99284; J1650; J1940; J7040; Q9967

== ENCOUNTER 2022-07-27 09:46 | Emergency (ER) | payer MEDICARE ==
[~2022-07-27] VITALS: Ht 172.7 cm; Wt 96.2 kg
[~2022-07-27 09:46] MED LIST changes: +LASIX40 MG PO; +METOPROLOL TART25 MG PO; +OMEPRAZOLE40 MG PO; +POTASSIUM CHLO10 ME1 PO
[2022-07-27] MEDS ORDERED: DIAZEPAM 5 MG TAB PO STA (10:11)
== END 2022-07-27 10:59 | disposition home or self-care (01) ==
LOC: ER 10:14
DX: M62.838 Other muscle spasm (principal); I10 Essential (primary) hypertension; E11.9 Type 2 diabetes mellitus without complications; E78.5 Hyperlipidemia, unspecified; Z95.0 Presence of cardiac pacemaker; Z79.02 Long term (current) use of antithrombotics/antiplatelets; Z79.84 Long term (current) use of oral hypoglycemic drugs; Z79.4 Long term (current) use of insulin; Z79.899 Other long term (current) drug therapy
CPT/HCPCS: 99282

== ENCOUNTER 2022-09-30 10:17 | Emergency (ER) | payer MEDICARE, OTHER ==
[~2022-09-30] VITALS: Ht 175.3 cm; Wt 96.2 kg
[2022-09-30 12:25] LABS: BASOPHILS % 0.6 % (0.0-1.0); EOSINOPHILS # (AUTO) 0.1 (0.0-0.4); EOSINOPHILS % 2.9 % (0.0-6.0); HEMATOCRIT 41.1 % (38.2-49.6); HEMOGLOBIN 13.7 g/dL (14.0-18.0); LYMPHOCYTES % 29.6 % (18.0-39.1); MEAN CORPUSCULAR HEMOGLOBIN 31.6 pg (28-32); MEAN CORPUSCULAR HGB CONC 33.3 g/dL (31-35); MEAN CORPUSCULAR VOLUME 94.7 fL (81-99); MONOCYTES # (AUTO) 0.4 (0.2-0.8); MONOCYTES % 12.2 % (4.4-11.3); NEUTROPHILS # (AUTO) 1.9 (2.1-6.9); NEUTROPHILS % 54.4 % (38.7-80.0); PLATELET COUNT 153 x10e3/uL (140-360); RED BLOOD COUNT 4.34 x10e6/uL (4.3-5.7)
[2022-09-30 12:52] LABS: ALBUMIN 3.2 g/dL (3.5-5.0); ALBUMIN/GLOBULIN RATIO 1.1 (0.8-2.0); ANION GAP 12.3 mmol/L (8-16); CALCIUM 7.7 mg/dL (8.4-10.2); CREATININE, SERUM 0.72 mg/dL (0.72-1.25); POTASSIUM 3.3 mmol/L (3.5-5.1)
[2022-09-30 15:14] VITALS: O2SAT 99
== END 2022-09-30 16:16 | disposition home or self-care (01) ==
LOC: ER 10:36
DX: R20.2 Paresthesia of skin (principal); R20.0 Anesthesia of skin; M79.622 Pain in left upper arm; I10 Essential (primary) hypertension; E11.9 Type 2 diabetes mellitus without complications; E78.5 Hyperlipidemia, unspecified
CPT/HCPCS: 36415; 71045; 80053; 84484; 85025; 93005; 99284

== ENCOUNTER → 2022-10-24 | Outpatient (CLI) | payer MEDICARE | LOC: CT 14:28 | PROVIDERS: ATTEND Internal Medicine | DX: C18.6 Malignant neoplasm of descending colon (principal) | CPT/HCPCS: 71250 ==

== ENCOUNTER 2024-04-24 11:26 | Emergency (ER) | payer MEDICARE ==
[~2024-04-24] VITALS: Ht 172.7 cm; Wt 89.4 kg
[~2024-04-24 11:26] MED LIST changes: +ENTRESTO 24 MG1 EACH PO; +OZEMPIC0.25 MG/02 SQ
[2024-04-24 11:30] VITALS: TEMP 98.7
[2024-04-24 12:22] LABS: BASOPHILS % 0.8 % (0.0-1.0); EOSINOPHILS # (AUTO) 0.1 (0.0-0.4); EOSINOPHILS % 3.7 % (0.0-6.0); HEMATOCRIT 38.9 % (38.2-49.6); HEMOGLOBIN 12.8 g/dL (14.0-18.0); LYMPHOCYTES # (AUTO) 0.7 (1.0-3.2); LYMPHOCYTES % 28.5 % (18.0-39.1); MEAN CORPUSCULAR HEMOGLOBIN 31.7 pg (28-32); MEAN CORPUSCULAR HGB CONC 32.9 g/dL (31-35); MEAN CORPUSCULAR VOLUME 96.3 fL (81-99); MONOCYTES # (AUTO) 0.4 (0.2-0.8); MONOCYTES % 14.6 % (4.4-11.3); NEUTROPHILS # (AUTO) 1.3 (2.1-6.9); NEUTROPHILS % 52.4 % (38.7-80.0); PLATELET COUNT 145 x10e3/uL (140-360); RED BLOOD COUNT 4.04 x10e6/uL (4.3-5.7); RED CELL DISTRIBUTION WIDTH 12.8 % (11.7-14.4); WHITE BLOOD COUNT 2.46 x10e3/uL (4.8-10.8)
[2024-04-24 12:25] LABS: INR 0.89; PROTHROMBIN TIME 12.6 seconds (11.9-14.5)
[2024-04-24 12:26] LABS: PARTIAL THROMBOPLASTIN TIME 27.7 seconds (23.8-35.5)
[2024-04-24 12:33] LABS: ALBUMIN 3.7 g/dL (3.5-5.0); ALBUMIN/GLOBULIN RATIO 0.9 (0.8-2.0); ANION GAP 14.9 mmol/L (8-16); BILIRUBIN,TOTAL 0.5 mg/dL (0.2-1.2); CALCIUM 9.5 mg/dL (8.4-10.2); CREATININE, SERUM 0.82 mg/dL (0.72-1.25); MAGNESIUM 1.4 MG/DL (1.3-2.1); POTASSIUM 3.9 mmol/L (3.5-5.1); TOTAL PROTEIN 7.6 g/dL (6.5-8.1)
[2024-04-24 12:37] LABS: CORONAVIRUS COVID-19 AG NEGATIVE (NEGATIVE); INFLUENZA A AG NEGATIVE (NEGATIVE); INFLUENZA B AG NEGATIVE (NEGATIVE)
[2024-04-24 12:39] LABS: TROPONIN I 0.197 ng/mL (0-0.300)
[2024-04-24 14:30] VITALS: PULSE 68; RESP 16; O2SAT 97
== END 2024-04-24 16:21 | disposition home or self-care (01) ==
LOC: ER 11:58
DX: R06.00 Dyspnea, unspecified (principal); I10 Essential (primary) hypertension; E11.9 Type 2 diabetes mellitus without complications; I50.9 Heart failure, unspecified; E78.5 Hyperlipidemia, unspecified; Z11.52 Encounter for screening for COVID-19; R94.31 Abnormal electrocardiogram [ECG] [EKG]; Z95.810 Presence of automatic (implantable) cardiac defibrillator; Z85.038 Personal history of other malignant neoplasm of large intestine
CPT/HCPCS: 36415; 71045; 80053; 82550; 83735; 83880; 84484; 85025; 85610; 85730; 93005; 99284